=== PATIENT | male | born 1970 | race Caucasian/White ===

== ENCOUNTER → 2024-02-17 10:32 | Outpatient (REF) | payer OTHER, SELFPAY | LOC: RCS 10:32 | PROVIDERS: ATTENDING PHYSICIAN Internal Medicine Cardiovascular Disease; FAMILY PHYSICIAN Family Medicine | DX: E78.2 Mixed hyperlipidemia (principal); I25.10 Atherosclerotic heart disease of native coronary artery without angina pectoris | CPT/HCPCS: 93017 ==

== ENCOUNTER 2024-04-08 17:11 | Inpatient (IN) | payer OTHER, SELFPAY ==
[2024-04-08] VITALS (8 sets, daily range): BP systolic 94–151; BP diastolic 47–88; BMI 31.0
[2024-04-08] MEDS: ZOFRAN 4 MG IV (13:37)
[2024-04-08] MEDS: MORPHINE SULFATE 4 MG IV (13:37)
[2024-04-08 13:40] LABS: % Basophils 0.3 % (0-2); % Eosinophils 1.5 % (0-6); % Immature Granulocytes 0.4 % (0-0.5); % Lymphocytes 24.5 % (20.5-51.1); % Monocytes 9.5 % (1.7-9.3); % Neutrophils 63.8 % (42.2-75.2); Absolute Eosinophils 0.2 10^3/uL (0-0.7); Absolute Immature Granulocytes 0.1 10^3/uL (0-0.05); Absolute Monocytes 1.2 10^3/uL (0.1-0.6); Absolute Neutrophils 7.9 10^3/uL (1.4-6.5); Hematocrit 38.7 % (39.0-52.0); Hemoglobin 13.5 g/dL (13.0-18.0); Mean Corp Hgb Conc. 34.9 g/dL (33.0-37.0); Mean Corpuscular Hgb 29.9 pg (27.0-31.0); Mean Corpuscular Volume 85.6 fL (80.0-94.0); Mean Platelet Volume 10.2 fL (7.4-10.4); Nucleated Red Blood Cells % 0 % (-); Platelet Count 204 10^3/uL (130-400); Red Blood Cell Count 4.52 10^6/uL (4.70-6.10); White Blood Cell Count 12.4 10^3/uL (4.8-10.8)
[2024-04-08 13:56] LABS: Lactic Acid 0.7 mmol/L (0.7-2.0)
[2024-04-08 13:57] LABS: ALT (SGPT) 45 U/L (0-50); AST (SGOT) 24 U/L (17-59); Albumin 4.2 g/dl (3.5-5.0); Alkaline Phosphatase 55 U/L (38-126); Blood Urea Nitrogen 18 mg/dl (9-20); Calcium 9.5 mg/dl (8.4-10.2); Carbon Dioxide 22 mmol/L (22-30); Chloride 104 mmol/L (98-107); Estimated Creatinine Clearance 95 ml/min; Glucose 99 mg/dl (70-99); Potassium 4.2 mmol/L (3.5-5.1); Sodium 138 mmol/L (135-145); Total Bilirubin 1.2 mg/dl (0.2-1.3); Total Protein 6.8 g/dl (6.3-8.2); eGFR > 60.00
--- NOTE | 2024-04-08 14:25 | ED.GENMED ---
History of Present Illness
General
Chief Complaint: Abdominal Pain
Source: patient and spouse
Exam Limitations: none
Time Seen by Provider: 04/08/24 13:26
History of Present Illness
History of Present Illness:
53-year-old male who presents with lower abdominal pain that began about 530 last night. He states his pain has persisted through today. It is not improved. He does admit that the pain was worse when they hit bumps on his drive over here. He
denies vomiting or nausea. No fevers. No stool changes. No urinary symptoms. Did have a little bit of chills last night. Does state that he has had diverticular disease noted on the colonoscopy in the past. Has never had diverticulitis
Past History
Past History
ED Past Medical History: Hypercholesterolemia and Other (Diverticulosis, high calcium score)
Phy Exam
Physical Exam
Physical Exam:
CONSTITUTIONAL Patient alert and oriented to person, place and time. Well-appearing. Vital signs reviewed.
HEAD atraumatic, normocephalic.
EYES eyelids normal to inspection, Extraocular muscles intact, Conjunctiva normal, Sclera normal.
NECK normal range of motion, Trachea midline, no jugular venous distention.
RESPIRATORY CHEST No respiratory distress noted, Chest expansion equal, Bilateral breath sounds clear.
CARDIOVASCULAR regular rate and rhythm, Heart sounds normal.
ABDOMEN mild distention noted, rebound noted, moderate diffuse tenderness noted..
BACK normal inspection, no obvious deformities
UPPER EXTREMITY range of motion normal, Motor strength normal, no cyanosis, no edema.
LOWER EXTREMITY range of motion normal, Motor strength normal, no cyanosis, no edema.
NEURO Speech normal, No focal motor deficits, Fredrick coma scale 15, Memory normal, Cranial Nerves intact to screening exam.
SKIN skin warm, dry, and normal in color.
Sepsis
Sepsis Screening
Sepsis Assessment: Sepsis Ruled Out
Sepsis Screen
Sepsis Screen: Sepsis Ruled Out
Date: 04/08/24
Time: 15:52
Course
Orders/Labs/Results
Orders:
Orders
04/08/24 13:31
Complete Blood Count/With Diff Urgent
Comprehensive Metabolic Panel Urgent
Lactic Acid Urgent
04/08/24 13:34
Morphine Sulfate 4 mg .ROUTE .STK-MED ONE
Ondansetron Injectable [Zofran] 4 mg .ROUTE .STK-MED ONE
04/08/24 13:36
CT Abd/Pel (IV only)-DH only Urgent
Comment: DOES NOT NEED TO WAIT FOR LABS
Reason For Exam: SEVERE lower abd pain
Morphine Sulfate 4 mg IV NOW STA
Ondansetron Injectable [Zofran] 4 mg IV NOW STA
04/08/24 14:57
Urinalysis Reflex To Culture Urgent
Date Specimen was Collected: 04/08/24
Time Specimen was Collected: 13:22
Piperacillin/Tazo 3.375 Gram [Zosyn] 3.375 gram in 50 ml IV NOW
Abnormal Lab Results
04/08/24
13:31
WBC 12.4 H 10^3/uL
(4.8-10.8)
RBC 4.52 L 10^6/uL
(4.70-6.10)
Hct 38.7 L %
(39.0-52.0)
Abs Immat Gran (auto) 0.1 H 10^3/uL
(0-0.05)
Absolute Neuts (auto) 7.9 H 10^3/uL
(1.4-6.5)
Absolute Monos (auto) 1.2 H 10^3/uL
(0.1-0.6)
Monocytes % 9.5 H %
(1.7-9.3)
04/08/24 13:31
04/08/24 13:31
Vital Signs
Initial and Last Documented VS:
Initial Vital Signs
Temp Pulse Resp BP Pulse Ox
100 F 94 18 120/82 96
04/08/24 13:16 04/08/24 13:16 04/08/24 13:16 04/08/24 13:16 04/08/24 13:16
Last Documented Vital Signs
Temp Pulse Resp BP Pulse Ox
100 F 77 18 151/88 96
04/08/24 13:16 04/08/24 15:15 04/08/24 15:15 04/08/24 15:04 04/08/24 15:15
MDM/Problems Addressed
Differential Diagnosis Includes:
Perforated diverticulitis, appendicitis, perforated peptic ulcer disease, duodenal ulcer disease, pancreatitis, colitis, UTI
*Pulse Oximetry
Patient hypoxic: no
*Critical Care Note
Total Time (30-74mins, 75-104mins- exclusive of procedures): 30 minutes
Data Reviewed
Source: patient and spouse
Patient Management
Discussion with other providers: [employer] (Case discussed with colorectal surgery) and Radiologist (Case discussed with radiology)
Escalation/DeEscalation of care consider admission/obs:
53-year-old male who presents with peritoneal findings on exam. Found to have perforated viscus that I saw immediately upon completion of his CT. Case discussed with colorectal surgery who is now in the room evaluating the patient. Zosyn ordered.
Pain much improved
ED Attending Note
-
Portions of this chart may have been created with voice recognition software.� Occasional wrong word or��sound alike� substitutions may have occurred due to the inherent limitations of voice recognition software.
Discharge Plan
Departure
Patient Disposition: Admit
Date of Disposition: 04/08/24
Time of Disposition: 15:15
Admit to: Med/Surg
Presentation/result/management discussed w/ accepting MD/DO: Hospitalist
Discharge Problem:
Perforated abdominal viscus, Acute diverticulitis
Prescriptions:
No Action
atorvastatin 80 mg tablet
80 mg PO DAILY
aspirin 81 mg Tablet,Delayed Release (Dr/Ec)
81 mg PO DAILY
Referrals:
Torey Gunter DO [Family Provider] -
Interventions
Interventions:
*Risk Screen - Suicide Last Done: 04/08/24 13:16
*General Assessment Last Done: 04/08/24 13:16
*Neglect/Abuse Screening Last Done: 04/08/24 13:16
*ED COVID-19 Vaccine History Last Done: 04/08/24 13:36
YF-Vftvqv-Beajrtbngv Assessment Last Done: 04/08/24 13:35
Discharge Date and Time
Print Language: [place]
[2024-04-08] MEDS: ZOSYN 50 IV ×2 (15:03→22:38)
[2024-04-08 15:14] LABS: Urine Albumin Negative (Neg - Trace); Urine Bilirubin Negative (Negative); Urine Character Clear (Clear); Urine Color Yellow; Urine Glucose Negative (Negative); Urine Ketone Negative (Negative); Urine Leukocyte Negative (Negative); Urine Nitrite Negative (Negative); Urine Occult Blood Negative (Negative); Urine Specific Gravity 1.015 (<1.030); Urine Urobilinogen Negative (Neg - 1+)
--- NOTE | 2024-04-08 16:01 | CON.CRS ---
Consultation
-
Performing Provider: Jonathan Garsia MD
Reason for Consultation: Diverticulitis with perforation
Medical History
-
History of Present Illness:
Patient is a 53-year-old male with PMH of HLD, RAINA (on BiPAP at home), GERD who presents with abdominal pain starting yesterday at around 5 PM. He first noticed it while he was doing his usual daily 5 mile walk on the treadmill. It slowly
progressively got worse during the day. He was able to have dinner, but by this morning, the pain was a 7-8 out of 10. He denies any issues with nausea, vomiting, diarrhea, hematochezia, chest pain or shortness of breath. He has been passing
flatus. His last colonoscopy was 05/[address] Inman, which showed a sigmoid TA, diverticulosis, hemorrhoids and was recommended to repeat in 5 years. His mother had an unknown adenocarcinoma, believed to be lung or breast. His grandfather had
colon cancer.
In the ED, his Tmax was 100.0, vitals WNL, WBC 12.[address] scan showing diverticulitis with evidence of scattered flecks of free air, primarily in the upper abdomen and adjacent to the sigmoid colon. No free fluid or abscess.
Past Medical History
Past Medical History: Other (As above)
Past Surgical History: Other (Excision of left thigh hemangioma)
Social History
Tobacco: Non-Smoker
Alcohol: Occasional
Drug: None
Allergies / Home Medications
Allergy/AdvReac Type Severity Reaction Status Date / Time
No Known Allergies Allergy Verified 04/08/24 13:16
�Medication �Instructions �Recorded �Confirmed �Type
aspirin 81 mg tablet,delayed 81 mg PO DAILY 04/08/24 04/08/24 History
release
atorvastatin 80 mg tablet 80 mg PO DAILY 04/08/24 04/08/24 History
Review of Systems
-
All other systems: Negative unless noted
A 10 point review of systems was completed, and was negative except as per HPI.
Physical Exam
Vital Signs
Temp 100 F 04/08/24 13:16
Pulse 77 04/08/24 15:15
Resp Rate 18 04/08/24 15:15
Blood pressure 151/88 04/08/24 15:04
SaO2 96 04/08/24 15:15
04/07/24 04/08/24 04/09/24
06:59 06:59 06:59
Actual Weight 100.7 kg
Body Mass Index (BMI) 31.0
Lab Results / Allergies
04/08/24 13:31
04/08/24 13:31
WBC 12.4 10^3/uL (4.8-10.8) H 04/08/24 13:31
Hgb 13.5 g/dL (13.0-18.0) 04/08/24 13:31
Hct 38.7 % (39.0-52.0) L 04/08/24 13:31
Plt Count 204 10^3/uL (130-400) 04/08/24 13:31
Abs Immat Gran (auto) 0.1 10^3/uL (0-0.05) H 04/08/24 13:31
Neutrophils % 63.8 % (42.2-75.2) 04/08/24 13:31
Allergy/AdvReac Type Severity Reaction Status Date / Time
No Known Allergies Allergy Verified 04/08/24 13:16
Physical Exam
General: Well Developed, Well Nourished and No Apparent Distress
HEENT: Normocephalic and Atraumatic
GI: Soft, Non Distended and Tender (Mildly to moderately tender in the LLQ, diffusely mildly tender with subtle rebound towards the upper quadrants, no guarding)
Skin: Warm and Dry
Neuro: AO x 3
Data Reviewed
-
CT Scan: Image Personally Visualized and interpreted, Discussed with Physician (Radiology and EM), Discussed with Patient and Discussed with Family
Labs: Labs Reviewed by me, Discussed with Patient and Discussed with Family
Assessment / Plan
-
53-year-old male with PMH of HLD, RAINA (on BiPAP at home), GERD who presents with abdominal pain starting yesterday at around 5 PM. He first noticed it while he was doing his usual daily 5 mile walk on the treadmill. It slowly progressively got
worse during the day. He was able to have dinner, but by this morning, the pain was a 7-8 out of 10. He denies any issues with nausea, vomiting, diarrhea, hematochezia, chest pain or shortness of breath. He has been passing flatus. His last
colonoscopy was 05/[address] Inman, which showed a sigmoid TA, diverticulosis, hemorrhoids and was recommended to repeat in 5 years. His mother had an unknown adenocarcinoma, believed to be lung or breast. His grandfather had colon cancer. In
the ED, his Tmax was 100.0, vitals WNL, WBC 12.[address] scan showing diverticulitis with evidence of scattered flecks of free air, primarily in the upper abdomen and adjacent to the sigmoid colon. No free fluid or abscess.
�Acute diverticulitis with free perforation
�Currently hemodynamically stable and without evidence of overt peritonitis; had a lengthy discussion with the patient and patient's spouse regarding the treatment options, including urgent surgery versus close monitoring for any evidence of
clinical decline; urgent surgery has a much higher likelihood of requiring an ostomy, but results in prompt source control to avoid the complications of abdominal sepsis; with free perforation, the success rate with nonoperative management is
somewhere along the lines of 50 to 60%; therefore, nonoperative measures may be successful and avoid urgent surgery, decreasing the risk of needing an ostomy; however, the risk of nonoperative measures includes worsening clinical status, abdominal
sepsis and shock; all questions were answered and the patient understood; he elected to proceed with nonoperative measures for now with the understanding that clinical decline would require urgent surgery
�N.p.o. with IV fluids, okay for p.o. meds
�Continue IV antibiotics with Zosyn
� Continue pain control with Toradol and Dilaudid as needed
� Okay for OOB/IS
� Will send preoperative workup, including EKG/chest x-ray, type and screen and coags for the morning
� Will order BiPAP nightly
[2024-04-08] MEDS: D5LR 1000 IV (18:29)
[2024-04-08] MEDS: DILAUDID 0.5 MG IV (22:38)
[2024-04-09] MEDS: D5LR 1000 IV ×3 (03:11→20:00)
[2024-04-09] MEDS: ZOSYN 50 IV ×4 (03:21→21:03)
[2024-04-09] MEDS: DILAUDID 0.5 MG IV (03:22)
[2024-04-09 03:28] VITALS: BP 122/71
[2024-04-09 05:47] LABS: Hematocrit 36.7 % (39.0-52.0); Hemoglobin 11.9 g/dL (13.0-18.0); Mean Corp Hgb Conc. 32.4 g/dL (33.0-37.0); Mean Corpuscular Hgb 29.8 pg (27.0-31.0); Mean Corpuscular Volume 91.8 fL (80.0-94.0); Mean Platelet Volume 10.5 fL (7.4-10.4); Platelet Count 168 10^3/uL (130-400); Red Cell Dist. Width 13.1 % (11.5-14.5); White Blood Cell Count 9.2 10^3/uL (4.8-10.8)
[2024-04-09 06:25] LABS: ALT (SGPT) 35 U/L (0-50); AST (SGOT) 19 U/L (17-59); Albumin 3.5 g/dl (3.5-5.0); Alkaline Phosphatase 48 U/L (38-126); Blood Urea Nitrogen 16 mg/dl (9-20); Calcium 8.7 mg/dl (8.4-10.2); Carbon Dioxide 30 mmol/L (22-30); Chloride 101 mmol/L (98-107); Estimated Creatinine Clearance 66 ml/min; Glucose 116 mg/dl (70-99); Potassium 4.6 mmol/L (3.5-5.1); Sodium 138 mmol/L (135-145); Total Bilirubin 1.2 mg/dl (0.2-1.3); Total Protein 5.9 g/dl (6.3-8.2); eGFR > 60.00
[2024-04-09 07:10] VITALS: BP 108/70
[2024-04-09] MEDS: TORADOL 15 MG IV (07:20)
[2024-04-09 11:18] LABS: Osmolality Urine 422 mOsm/kg (300-900)
[2024-04-09 11:20] VITALS: BP 123/95
[2024-04-09 11:38] LABS: Urine Sodium 30 mmol/L (30-90)
--- NOTE | 2024-04-09 13:55 | W.PN.CRS1 ---
Today's Communication / Plan
-
As below
Assessment/Plan
-
53-year-old male with PMH of HLD, RAINA (on BiPAP at home), GERD who presents with abdominal pain starting yesterday at around 5 PM. He first noticed it while he was doing his usual daily 5 mile walk on the treadmill. It slowly progressively got
worse during the day. He was able to have dinner, but by this morning, the pain was a 7-8 out of 10. He denies any issues with nausea, vomiting, diarrhea, hematochezia, chest pain or shortness of breath. He has been passing flatus. His last
colonoscopy was 05/[address] Inman, which showed a sigmoid TA, diverticulosis, hemorrhoids and was recommended to repeat in 5 years. His mother had an unknown adenocarcinoma, believed to be lung or breast. His grandfather had colon cancer. In
the ED, his Tmax was 100.0, vitals WNL, WBC 12.[address] scan showing diverticulitis with evidence of scattered flecks of free air, primarily in the upper abdomen and adjacent to the sigmoid colon. No free fluid or abscess.
AFVSS
WBC 9.2 from 12.4, Hb 11.9 from 13.5, creatinine 1.4 from 1.1
�Acute diverticulitis with free perforation; hemodynamically stable without overt peritonitis; improving
�Continue nonoperative measures with close monitoring
�JEFF, mild; continue IVF
�Renal ultrasound�no hydronephrosis; Fena 0.2, consistent with prerenal origin
�N.p.o. with IV fluids, okay for p.o. meds
�Continue IV antibiotics with Zosyn
� Continue pain control with Toradol and Dilaudid as needed
� Okay for OOB/IS
� Will send preoperative workup, including EKG/chest x-ray, type and screen and coags for the morning
� Will order BiPAP nightly
Subjective Data
Subjective Data
Date of Service: April 09, 2024
No overnight events.
Pain controlled.
Denies nausea/vomiting.
+flatus -BMs +voiding
Pt is OOB.
Objective Data
-
Vital Signs
Temp Pulse Resp BP Pulse Ox
97.9 F 70 18 123/95 99
04/09/24 11:20 04/09/24 11:20 04/09/24 11:20 04/09/24 11:20 04/09/24 11:20
Intake & Output
04/08/24 04/09/24 04/10/24
06:59 06:59 06:59
Intake Total 1600 / 1600
Balance 1600 / 1600
Intake:
IV fluids (Total) 1500 / 1500
IV piggybacks 100 / 100
Lab Results
04/09/24 04:30
04/09/24 04:30
Physical Exam
-
General: No Acute Distress and AOx3
HEENT: Grossly Normal
Abdomen: Soft, Non Distended, Tender (Mildly tender diffusely, improved from yesterday), No Guarding and No Rebound
Skin: Warm and Dry
[2024-04-09 15:40] VITALS: BP 136/82
[2024-04-09 19:13] VITALS: BP 136/81
[2024-04-09 22:59] VITALS: BP 118/70
[2024-04-10 03:16] VITALS: BP 119/69
[2024-04-10] MEDS: ZOSYN 50 IV ×4 (04:00→22:41)
[2024-04-10] MEDS: D5LR 1000 IV ×3 (04:00→22:44)
[2024-04-10 05:47] LABS: Hematocrit 37.5 % (39.0-52.0); Hemoglobin 12.2 g/dL (13.0-18.0); Mean Corp Hgb Conc. 32.5 g/dL (33.0-37.0); Mean Corpuscular Hgb 29.5 pg (27.0-31.0); Mean Corpuscular Volume 90.6 fL (80.0-94.0); Mean Platelet Volume 10.7 fL (7.4-10.4); Platelet Count 175 10^3/uL (130-400); Red Blood Cell Count 4.14 10^6/uL (4.70-6.10); White Blood Cell Count 9.4 10^3/uL (4.8-10.8)
[2024-04-10 06:01] LABS: APTT 32.9 Sec (23.4-35.0); INR 1.07; PT 14.2 Sec (11.4-14.6)
[2024-04-10 06:05] LABS: Blood Urea Nitrogen 12 mg/dl (9-20); Calcium 8.8 mg/dl (8.4-10.2); Carbon Dioxide 30 mmol/L (22-30); Chloride 102 mmol/L (98-107); Estimated Creatinine Clearance 71 ml/min; Glucose 110 mg/dl (70-99); Potassium 4.1 mmol/L (3.5-5.1); Sodium 141 mmol/L (135-145); eGFR > 60.00
[2024-04-10 07:33] VITALS: BP 128/79
[2024-04-10 11:17] VITALS: BP 128/73
--- NOTE | 2024-04-10 11:30 | W.PN.CRS1 ---
Today's Communication / Plan
-
clears
ivfs @ 100ml
restart po meds
Assessment/Plan
-
53-year-old male with PMH of HLD, RAINA (on BiPAP at home), GERD who presents with abdominal pain starting yesterday at around 5 PM. He first noticed it while he was doing his usual daily 5 mile walk on the treadmill. It slowly progressively got
worse during the day. He was able to have dinner, but by this morning, the pain was a 7-8 out of 10. He denies any issues with nausea, vomiting, diarrhea, hematochezia, chest pain or shortness of breath. He has been passing flatus. His last
colonoscopy was 05/[address] Inman, which showed a sigmoid TA, diverticulosis, hemorrhoids and was recommended to repeat in 5 years. His mother had an unknown adenocarcinoma, believed to be lung or breast. His grandfather had colon cancer. In
the ED, his Tmax was 100.0, vitals WNL, WBC 12.[address] scan showing diverticulitis with evidence of scattered flecks of free air, primarily in the upper abdomen and adjacent to the sigmoid colon. No free fluid or abscess.
AFVSS
WBC 9.4 from 9.2, Hb 12.2 from 11.9, creatinine 1.3 from 1.4
�Acute diverticulitis with free perforation; hemodynamically stable without overt peritonitis; improving
�Continue nonoperative measures with close monitoring
�JEFF, mild; continue IVF
�Renal ultrasound�no hydronephrosis; Fena 0.2, consistent with prerenal origin
-Continue IVFs @ 100ml/hr
�Advance diet to clears
�Continue IV antibiotics with Zosyn
� Continue pain control with Toradol and Dilaudid as needed
� Okay for OOB/IS
� BiPAP nightly
- DVT prophylaxis: TEDs/SCDS, heparin subq
- Will restart po meds
Subjective Data
Subjective Data
Date of Service: April 10, 2024
Patient states his abdominal pain is 3/10. He is having bowel movements. He denies nausea or vomiting. Overall he is improving.
Objective Data
-
Vital Signs
Temp Pulse Resp BP Pulse Ox
98.0 F 66 17 128/73 98
04/10/24 11:17 04/10/24 11:17 04/10/24 11:17 04/10/24 11:17 04/10/24 11:17
Intake & Output
04/09/24 04/10/24 04/11/24
06:59 06:59 06:59
Intake Total 1600 / 1600 0 / 1840
Balance 1600 / 1600 0 / 1840
Intake:
Oral fluids 240 / 240
IV fluids (Total) 1500 / 1500 1500 / 1500
IV piggybacks 100 / 100 100 / 100
Other:
Number of approximated MODERATE 2
amounts of urine
Number of approximated LARGE 1
amounts of urine
Lab Results
04/10/24 04:59
04/10/24 04:59
Physical Exam
-
General: No Acute Distress and AOx3
Abdomen: Soft, Non Distended and Tender (mild LLQ )
Skin: Warm and Dry
[2024-04-10] MEDS: LIPITOR 80 MG PO (12:19)
[2024-04-10] MEDS: ASPIR LOW (ENTERIC COATED) 81 MG PO (12:19)
--- NOTE | 2024-04-10 12:19 | CM ---
Adm dx - Complicated diverticulitis
Met with pt and his at bedside
Pt reports he lives with his and 3 children in a 2 story home; 3 steps to enter, 12 steps to 2nd fl
Independent, employed FT, drives
DME - BiPap - [employer]
SNF/HH - denies past hx
Has ride at discharge
PCP - Torey Gunter
Pharm - [facility] - [address]
Plan - anticipate home no needs when medically stable
[2024-04-10 15:27] VITALS: BP 118/67
[2024-04-10 19:38] VITALS: BP 144/84
[2024-04-10 23:28] VITALS: BP 131/90
[2024-04-11] MEDS: ZOSYN 50 IV ×2 (03:19→10:31)
[2024-04-11] MEDS: D5LR 1000 IV (04:48)
[2024-04-11 06:09] LABS: % Basophils 0.5 % (0-2); % Eosinophils 4.6 % (0-6); % Immature Granulocytes 0.3 % (0-0.5); % Lymphocytes 34.3 % (20.5-51.1); % Monocytes 11.3 % (1.7-9.3); Absolute Eosinophils 0.4 10^3/uL (0-0.7); Absolute Lymphocytes 2.6 10^3/uL (1.2-3.4); Absolute Monocytes 0.9 10^3/uL (0.1-0.6); Absolute Neutrophils 3.8 10^3/uL (1.4-6.5); Hemoglobin 11.4 g/dL (13.0-18.0); Mean Corp Hgb Conc. 32.6 g/dL (33.0-37.0); Mean Corpuscular Hgb 29.1 pg (27.0-31.0); Mean Corpuscular Volume 89.3 fL (80.0-94.0); Mean Platelet Volume 10.7 fL (7.4-10.4); Nucleated Red Blood Cells % 0 % (-); Platelet Count 192 10^3/uL (130-400); Red Blood Cell Count 3.92 10^6/uL (4.70-6.10); Red Cell Dist. Width 13.1 % (11.5-14.5); White Blood Cell Count 7.7 10^3/uL (4.8-10.8)
[2024-04-11 07:12] VITALS: BP 116/79
[2024-04-11] MEDS: LIPITOR 80 MG PO (08:24)
[2024-04-11] MEDS: ASPIR LOW (ENTERIC COATED) 81 MG PO (08:24)
--- NOTE | 2024-04-11 09:58 | W.PN.CRS1 ---
Today's Communication / Plan
-
low residue diet
possible d/c later today
Assessment/Plan
-
53-year-old male with PMH of HLD, RAINA (on BiPAP at home), GERD who presents with abdominal pain starting yesterday at around 5 PM. He first noticed it while he was doing his usual daily 5 mile walk on the treadmill. It slowly progressively got
worse during the day. He was able to have dinner, but by this morning, the pain was a 7-8 out of 10. He denies any issues with nausea, vomiting, diarrhea, hematochezia, chest pain or shortness of breath. He has been passing flatus. His last
colonoscopy was 05/[address] Inman, which showed a sigmoid TA, diverticulosis, hemorrhoids and was recommended to repeat in 5 years. His mother had an unknown adenocarcinoma, believed to be lung or breast. His grandfather had colon cancer. In
the ED, his Tmax was 100.0, vitals WNL, WBC 12.[address] scan showing diverticulitis with evidence of scattered flecks of free air, primarily in the upper abdomen and adjacent to the sigmoid colon. No free fluid or abscess.
AFVSS
WBC 7.7 from 9.4, Hb 11.4 from 12.2, creatinine 1.3 from 1.4
� Advance diet to low residue
� Continue IV antibiotics with Zosyn
� Continue pain control with Toradol and Dilaudid as needed
� Okay for OOB/IS
� BiPAP nightly
- DVT prophylaxis: TEDs/SCDS, heparin subq
- Okay for discharge later today if tolerating a low residue diet. Follow up in the office with Dr. Garsia in 3-4 weeks. Finish outpatient course of po Augmentin.
Subjective Data
Subjective Data
Date of Service: April 11, 2024
Patient states he feels well. He has no nausea or vomiting. His abdominal pain is virtually gone. He has no complaints.
Objective Data
-
Vital Signs
Temp Pulse Resp BP Pulse Ox
97.9 F 63 16 116/79 96
04/11/24 07:12 04/11/24 07:12 04/11/24 07:12 04/11/24 07:12 04/11/24 07:12
Intake & Output
04/10/24 04/11/24 04/12/24
06:59 06:59 06:59
Intake Total 1840 / 1840 3040 / 3040
Balance 1840 / 1840 3040 / 3040
Intake:
Oral fluids 240 / 240 1440 / 1440
IV fluids (Total) 1500 / 1500 1500 / 1500
IV piggybacks 100 / 100 100 / 100
Other:
Number of approximated MODERATE 2 2
amounts of urine
Number of approximated LARGE 1 2
amounts of urine
Lab Results
04/11/24 04:34
04/10/24 04:59
Physical Exam
-
General: No Acute Distress and AOx3
Abdomen: Soft, Non Distended and Non Tender
Skin: Warm and Dry
--- NOTE | 2024-04-11 10:24 | W.DS.TRANS ---
DC Summary - Day Care Worker
-
Discharge Instructions:
Discharge Diagnosis/Procedures diverticulitis
Diet Low Residue
Activity As tolerated
Driving Restrictions As prior to admission
Bathing Restrictions None
Instructions: Low Fiber Diet
Stand-Alone Forms:
Changes to Home Medications: Yes
Discharge Medications:
DC Medications w/original date entered in [employer]
aspirin 81 mg tablet,delayed release 81 mg PO DAILY Blood Clot Prevention/Tx 04/08/24
atorvastatin 80 mg tablet 80 mg PO DAILY High Cholesterol 04/08/24
amoxicillin 875 mg-potassium clavulanate 125 mg tablet 1 tab PO BID 8 days #16 tabs 04/11/24
Home Medication Changes
amoxicillin 875 mg-potassium clavulanate 125 mg tablet 1 tab PO BID 8 days #16 tabs 04/11/24
Pending Results: No
[2024-04-11 11:18] VITALS: BP 135/76
--- NOTE | 2024-04-11 12:03 | CM ---
Pt for discharge today
Has ride home -
Plan - home no needs
== END 2024-04-11 13:19 | disposition home or self-care (01) | DRG 392 ==
LOC: 2 SOUTH 17:11
PROVIDERS: Physician Assistant; Registered Nurse; ADMITTING PHYSICIAN Surgery; EMERGENCY PHYSICIAN Emergency Medicine; FAMILY PHYSICIAN Family Medicine
DX: K57.20 Diverticulitis of large intestine with perforation and abscess without bleeding (principal); N17.9 Acute kidney failure, unspecified; K21.9 Gastro-esophageal reflux disease without esophagitis; Z80.0 Family history of malignant neoplasm of digestive organs; Z79.82 Long term (current) use of aspirin
CPT/HCPCS: 71045; 74177; 76775; 80048; 80053; 81003; 82570; 83605; 83935; 84300; 85025; 85027; 85610; 85730; 86850; 86900; 86901; 93005; 96365; 96375; 99291; Q9967

== ENCOUNTER 2024-06-02 06:13 | Inpatient (IN) | payer OTHER, SELFPAY ==
[2024-05-25 09:06] LABS: INR 0.94; PT 13.1 Sec (11.4-14.6)
[2024-05-25 09:07] LABS: APTT 29.2 Sec (23.4-35.0)
[2024-05-25 09:44] LABS: Hematocrit 38.7 % (39.0-52.0); Hemoglobin 12.9 g/dL (13.0-18.0); Mean Corp Hgb Conc. 33.3 g/dL (33.0-37.0); Mean Corpuscular Hgb 29.4 pg (27.0-31.0); Mean Corpuscular Volume 88.2 fL (80.0-94.0); Platelet Count 192 10^3/uL (130-400); Red Blood Cell Count 4.39 10^6/uL (4.70-6.10); Red Cell Dist. Width 13.3 % (11.5-14.5); White Blood Cell Count 6.8 10^3/uL (4.8-10.8)
[2024-05-25 10:06] LABS: ALT (SGPT) 76 U/L (0-50); AST (SGOT) 40 U/L (17-59); Albumin 4.4 g/dl (3.5-5.0); Alkaline Phosphatase 67 U/L (38-126); Blood Urea Nitrogen 19 mg/dl (9-20); Calcium 9.2 mg/dl (8.4-10.2); Carbon Dioxide 29 mmol/L (22-30); Chloride 103 mmol/L (98-107); Glucose 100 mg/dl (70-99); Potassium 4.2 mmol/L (3.5-5.1); Sodium 139 mmol/L (135-145); Total Bilirubin 0.5 mg/dl (0.2-1.3); eGFR > 60.00
[2024-05-25 12:23] VITALS: BMI 30.5
--- NOTE | 2024-05-29 13:23 | PTCARENOTE ---
Abnormal EKG reviewed by Dr. Doyle, no further action requested.
[2024-06-02] VITALS (19 sets, daily range): BP systolic 122–158; BP diastolic 66–102; BMI 30.5
[2024-06-02] MEDS: TYLENOL 1000 MG PO ×2 (06:58→18:11)
[2024-06-02] MEDS: LYRICA 150 MG PO (06:58)
[2024-06-02] MEDS: CELEBREX 200 MG PO (06:58)
[2024-06-02] MEDS: HEPARIN 5000 UNITS SC (06:59)
[2024-06-02] MEDS: NORMOSOL-R/PLASMALYTE-A 1000 IV ×2 (06:59→16:20)
[2024-06-02] MEDS: ENTEREG 12 MG PO (06:59)
--- NOTE | 2024-06-02 13:17 | W.IMMPOSTOP ---
Surgical Immed Post Op Note
-
Primary Surgeon: Jonathan Garsia MD
Assisting Surgeon: RAMONA Mckeon
Pre-op Diagnosis: Complicated diverticulitis
Post-op Diagnosis: Complicated diverticulitis
Procedure Performed: Robotic sigmoidectomy, lysis of adhesions, mesenteric angiography with ICG, flexible sigmoidoscopy, laparoscopic tap block
Anesthesia Type: General
Specimen / Cultures: Rectosigmoid, IMV
Estimated Blood Loss: 25 mL
IV fluid: 1.7 L
UOP 300 mL
Complications: None
Operative Findings: Veress technique, 5 ports and Pfannenstiel incision; pendulous preperitoneal fat in front of the camera port, which I resected with vessel sealer; took down some adhesions between the sigmoid and the left lower quadrant; started
with medial to lateral dissection; initially, a little too deep; switched to lateral to medial and identified the left ureter; switched back to medial to lateral and scored peritoneum more medially and entered the correct plane; protected the
hypogastric nerves; ligated the main sigmoidal and left colic artery with vessel sealer; medial to lateral mobilization of the mesocolon and descending colon; took down lateral attachments of to the proximal descending colon; mobilized the
rectosigmoid starting posteriorly; performed flexible sigmoidoscopy and aspirated significant amount of liquid stool; rectum healthy up to the rectosigmoid junction; scored my distal transection point, just distal to the rectosigmoid junction;
divided the mesorectum with the vessel sealer and stapled and divided the proximal rectum with 2 green loads of the 60 mm robotic stapler; selected a point at the distal descending colon, just proximal to the thickened sigmoid wall; divided the
mesentery up to this point, ligating the IMV; performed ICG and confirmed good perfusion to my proximal transection point and the rectal stump, except for a corner of the staple line which appeared less well-perfused; therefore, I stapled and
divided this area back to well-perfused rectum using 2 green loads of the 60 mm robotic stapler; placed anvil and divided the distal descending colon with 1 blue load of the robotic 60 mm stapler; I checked my reach, which appeared an adequate; I
mobilized the mesentery medially up to the inferior edge of the pancreas and divided the IMV at this point; as the IMV was divided at 2 locations within the mesentery, I resected it so that it would not serve as a nidus for infection; I took down
the lateral attachments up to the splenic flexure without taking this down completely; my reach was more than adequate at this point; performed an intracorporeal EEA stapled anastomosis; donuts intact x 2, negative leak test, anastomosis intact on
flexible sigmoidoscopy; performed ICG once more and both sides of the anastomosis were well-perfused; performed laparoscopic tap block and closed in the usual fashion
--- NOTE | 2024-06-02 13:28 | OR.RPT ---
Operative Report
Operative Report
DATE OF OPERATION: 06/02/2024
SURGEON: Jonathan Garsia MD
PREOPERATIVE DIAGNOSIS: History of perforated diverticulitis
POSTOPERATIVE DIAGNOSIS: History of perforated diverticulitis
OPERATION: Robotic sigmoidectomy, adhesiolysis greater than 30 minutes, mesenteric angiography with ICG, flexible sigmoidoscopy, laparoscopic TAP block
ASSISTANTS:
1. RAMONA Mckeon
ANESTHESIA: General
ESTIMATED BLOOD LOSS: 25 mL
IVF: 1.7 L
URINE OUTPUT: 300 mL
FINDINGS:
1. Thickening of mid�sigmoid colon with adhesions to the left lower quadrant
2. Divided the IMV at 2 separate points within the mesentery in order to improve reach; therefore, resected the blind-ending IMV
3. Performed intracorporeal EEA stapled colorectal anastomosis from the distal descending colon to the proximal rectum; donuts intact x 2, negative leak test, anastomosis intact on flexible sigmoidoscopy
SPECIMENS:
1. Rectosigmoid colon
2. IMV
DRAINS: None
COMPLICATIONS: No immediate complications.
INDICATIONS: The patient is a 53-year-old male who initially presented to the [facility] ED with acute abdominal pain and was found to have free perforation due to sigmoid diverticulitis. Although there was free air, it was a small amount and the
patient did not have any hemodynamic instability or peritonitis. He was treated nonoperatively successfully and discharged 3 days later. As this was a complicated episode of diverticulitis, I recommended definitive sigmoidectomy to reduce the risk
of recurrence and need for emergent surgery. The operation was discussed with the patient and patient's in detail, including the risks, benefits and alternatives. Risks described included, but not limited to, bleeding, infection, anastomotic
leak, damage to nearby structures (i.e.- ureter, bowel, solid organs), incisional hernia, need for ostomy creation, conversion to open, recurrent diverticulitis and anesthetic risks. The patient and patient's spouse understood and agreed to proceed.
PROCEDURE IN DETAIL: The patient was taken to the operating room and placed on the operating table in supine position. Sequential compression devices were placed bilaterally. General anesthesia was induced and the patient was intubated without
complication. The patient was placed in lithotomy position with both arms tucked. Sheppard catheter was placed with sterile technique. The abdomen was shaved, prepped and draped in a sterile fashion. A time-out was performed verifying the correct
patient, procedure, operative site, positioning, and special equipment. Preoperative antibiotics were given. A marking pen was used to shekhar out the midline.
An 8 mm incision at Shi's point was made with an 11 blade scalpel. A Veress needle was used to gain abdominal access. After 3 clicks, the insufflation was connected to the Veress needle and the opening pressure was noted to be less than 8 mmHg.
The abdomen was then insufflated to a pressure of 12 mmHg. An 8 mm robotic trocar was then inserted. The robotic camera was advanced and intra-abdominal placement was confirmed. The abdomen was examined. No injuries were noted from port entry or
from the Veress needle. No concerning lesions were noted on the surface of the liver or the peritoneum. There appeared to be some adhesions to the sigmoid in the left lower quadrant. The remaining three 8mm robotic ports were placed under direct
visualization in a diagonal fashion from Shi's point to the right lower quadrant, as well as an 8mm assist port in the right lateral mid abdomen, taking care to avoid injury to the right epigastric vessels. The left upper quadrant port was
changed to the air seal port.
A 4 cm Pfannenstiel incision was created 2 fingerbreadths above the pubic symphysis. This was carried down to the anterior fascia with electrocautery and hemostasis was assured. The fascia was incised to just beyond the length of the skin
incision. The fascia was grasped with Mignon's and elevated. The adhesions to the anterior fascia were taken down bluntly from the rectus abdominis muscle and the midline attachment was taken down with electrocautery. This was performed both
superiorly and inferiorly to our incision. The rectus was split along the midline, first scoring the linea alba with electrocautery, then bluntly spitting with a Michelle clamp to reveal the peritoneum, which was grasped and elevated with Kellys. The
peritoneum was incised with Metzenbaum scissors, taking care to avoid injury to intraperitoneal structures. The peritoneum was then incised cranially and caudally to the greatest extent that our incision would allow, taking care to avoid injury to
the bladder. A small Alex with port cap was placed and a robotic 12 mm port was placed through the port cap. Then, the patient was placed in 28 degrees trendelenburg and 10 degrees [id number]. The robot was docked from the patient's left
side. From the RLQ to Shi's point, the instruments introduced were the scissors, camera, bipolar grasper and tip-up grasper, respectively. After the instruments were engaged, I discovered a pendulous flap, about 2 cm long and 5 cm wide, of
preperitoneal flat in front of the camera, obscuring visualization of the left lower quadrant. Using electrocautery, I excised this and discarded it.
The small bowel was retracted out of the pelvis and towards the right upper quadrant. Some adhesions were noted from the left pelvic sidewall to the sigmoid colon, which were taken down with electrocautery. The sigmoid was grasped and elevated to
commence a medial to lateral dissection. The peritoneum overlying the sacral promontory was scored and entered. This dissection was taken medially. However, I did not initially enter the correct plane. Therefore, to avoid injury to important
structures, I switched to a lateral to medial approach. I freed the sigmoid colon and sigmoid mesentery medially until I identified the the left ureter. I switched back to a medial approach and had better view of the rectosigmoid mesentery. I
scored the peritoneum slightly more medially and entered the correct plane. I connected this to my lateral dissection. I continued this superiorly towards the STEVEN pedicle, taking care to avoid injury to the hypogastric nerves. The left ureter was
continuously visualized and kept safe. I dissected the STEVEN pedicle circumferentially. As this was not a cancer dissection, my priority was not to perform a high ligation. Therefore, I ligated the pedicle at a safe distance from the left ureter
and hypogastric nerves with the vessel sealer. I then identified that the left colic artery was just proximal to my ligation point. I circumferentially dissected the left colic artery and then ligated this with the vessel sealer. The STEVEN stump was
completely hemostatic. I grasped the mesentery and elevated it to proceed with a medial to lateral mobilization of the descending colon. I carried this to the inferior border of the pancreas and laterally towards the lateral sidewall. I took down
the lateral attachments of the descending colon up to the proximal descending colon.
I turned my attention back to the pelvis. I continued the dissection inferiorly in the presacral plane, and took this to just beyond the sacral promontory. I scored the peritoneum along the left and right aspects of the rectosigmoid down towards
the anterior reflection. I used the vessel sealer to connect the posterior dissection to the lateral stalks. At this point, the rectosigmoid was adequately mobilized. I performed a flexible sigmoidoscopy and discovered copious liquid stool within
the rectum, which I suctioned away. The rectum appeared healthy up to the rectosigmoid junction. Therefore, I planned for my distal transection point to be just distal to the rectosigmoid junction and scored this with electrocautery on the
peritoneum. I went back on the robotic console. I created a tunnel through the mesorectum at my proposed transection point and divided the mesorectum with the vessel sealer. I stapled and divided at the proximal rectum with 2 green loads of the
60 mm robotic stapler. There was hemostasis at the staple line.
For my proximal transection point, I assessed the sigmoid and distal descending colon. There was inflammation and thickening of the colon wall up to the level of the proximal sigmoid colon. Therefore, I planned to transect at the distal descending
colon just proximal to the inflammation. I elevated the colon at this point with my tip up grasper. I fanned out the mesentery from the divided main sigmoidal artery. I ligated the mesentery from this spot to my transection point on the the
descending colon, coming across the IMV. Anesthesia injected ICG and I evaluated my proposed transection point with firefly, which appeared well-perfused. Additionally, the rectal stump appeared well-perfused except for the right corner of the
staple line. This corner of the rectum was jutting out asymmetrically from the left side. This lended itself well to coming across it again with an additional green load of the 60 mm robotic stapler without completely revising the staple line.
There was an aspect of mesentery that was not included within this staple line. Therefore, another green load was used to come across this.
I elected to proceed with an intracorporeal end-to-end stapled anastomosis with EEA stapler. A colotomy in the devascularized segment of colon was created using the robotic scissors at a point distal to my proposed proximal transection point. The
anvil with a long Prolene suture attached at the tip was carefully passed through the colotomy and advanced proximally up the descending colon, with the long Prolene remaining outside of the colon. The colotomy was closed around the Prolene stitch
using a V-Loc running stitch. The robotic stapler with a blue load was used to staple and divide the descending colon at our proposed transection point where adequate perfusion was noted on firefly. The specimen was placed in the left upper
quadrant. The Prolene attached to the anvil was grasped and pulled through the staple line after removing a few evangelina. I grasped and elevated the anvil and cleaned up the staple line from intervening mesentery and fat. There was one small
diverticula along the anvil staple line. This was secured to the the anvil post using a 2-0 Vicryl pursestring. Now, the colon was seated along the staple line nicely without intervening diverticula or mesentery. The specimen was removed through
the Pfannenstiel port and passed off for pathology.
I checked the reach of the proposed anastomosis and it was inadequate. I turned my attention to the medial aspect of the descending colon mesentery. I divided the base of the mesentery up to the inferior border of the pancreas. I dissected out
the IMV at the inferior border of the pancreas and ligated this with the vessel sealer. As there was now a blind ending IMV within the mesentery, I used the vessel sealer to resect this. I passed this off as specimen. I freed up the descending
colon laterally as well, taking this all the way up to the splenic flexure, but without taking the splenic flexure down. I freed up omental attachments to the descending colon. I checked my reach once more and it was plenty adequate. The
operative field was surveyed and hemostasis was ensured. Sizers were passed up the rectum to ensure adequate circumference and length. The EEA stapler was passed transanally to the distal staple line. The pin was extended at the midpoint of the
crossed staple lines and was connected with the anvil. After ensuring there was no twist to the mesentery and there was no tension, the EEA stapler was closed for 1 minute and fired. Both donuts were intact. A leak test was performed by filling
the pelvis with saline, occluding the proximal lumen and insufflating with the flexible sigmoidoscope. There was no evidence of leak from the anastomosis. Endoscopically, the anastomosis was intact without evidence of bleeding. The colorectum was
desufflated and the flexible sigmoidoscope removed. Anesthesia injected ICG once more in the anastomosis was well-perfused circumferentially on Firefly.
The robotic instruments were removed and the robot was undocked. Using laparoscopic visualization, a TAP block was performed using a total of 30 mL of 0.25% Marcaine with epinephrine mixed with dexamethasone and injecting in the transverse
abdominis plane bilaterally. The remaining ports were removed under direct visualization and no bleeding was noted. The Pfannenstiel incision was closed in layers. First, the peritoneum was closed with a running 0-Vicryl stitch. Then, the
anterior fascia was closed using a #1 Stratafix suture. The incisions were irrigated. The remaining 30 mL of 0.25% Marcaine with epinephrine mixed with dexamethasone were injected around the incisions. The incisions were closed with running
subcuticular 4-0 Monocryl and dressed with Dermabond.
At this point, the procedure was complete. The patient was awoken and extubated without complication. All needle, sponge and instrument counts were reported as correct. The patient tolerated the procedure well and was transferred to the recovery
room in stable condition with the sheppard in place.
DICTATED BY: Jonathan Garsia MD
--- NOTE | 2024-06-02 16:28 | PTCARENOTE ---
Received patient from PACU via bed around 1610 in stable condition. Patient oriented to room. Lap sites and 1 transverse suprapubic with surgical glue CARINA. Urinary catheter draining clear yellow urine. VS stable. Call howe in reach.
[2024-06-02] MEDS: TORADOL 15 MG IV (19:25)
[2024-06-03] MEDS: TYLENOL 1000 MG PO ×4 (00:02→17:31)
[2024-06-03] MEDS: TORADOL 15 MG IV ×4 (01:11→18:16)
[2024-06-03 03:30] VITALS: BP 142/77
[2024-06-03 05:09] VITALS: BP 142/77
[2024-06-03 06:47] LABS: % Basophils 0.1 % (0-2); % Immature Granulocytes 0.3 % (0-0.5); % Lymphocytes 9.6 % (20.5-51.1); % Monocytes 8.7 % (1.7-9.3); % Neutrophils 81.3 % (42.2-75.2); Absolute Lymphocytes 1.2 10^3/uL (1.2-3.4); Absolute Monocytes 1.1 10^3/uL (0.1-0.6); Absolute Neutrophils 10.1 10^3/uL (1.4-6.5); Hematocrit 35.1 % (39.0-52.0); Hemoglobin 12.1 g/dL (13.0-18.0); Mean Corp Hgb Conc. 34.5 g/dL (33.0-37.0); Mean Corpuscular Hgb 29.4 pg (27.0-31.0); Mean Corpuscular Volume 85.4 fL (80.0-94.0); Mean Platelet Volume 10.2 fL (7.4-10.4); Nucleated Red Blood Cells % 0 % (-); Platelet Count 177 10^3/uL (130-400); Red Blood Cell Count 4.11 10^6/uL (4.70-6.10); Red Cell Dist. Width 13.2 % (11.5-14.5); White Blood Cell Count 12.5 10^3/uL (4.8-10.8)
[2024-06-03 07:13] LABS: Blood Urea Nitrogen 18 mg/dl (9-20); Calcium 9.1 mg/dl (8.4-10.2); Carbon Dioxide 28 mmol/L (22-30); Chloride 102 mmol/L (98-107); Estimated Creatinine Clearance 94 ml/min; Glucose 139 mg/dl (70-99); Sodium 137 mmol/L (135-145); eGFR > 60.00
[2024-06-03 07:18] LABS: Potassium 4.9 mmol/L (3.5-5.1)
[2024-06-03 07:22] VITALS: BP 113/68
[2024-06-03] MEDS: LIPITOR 80 MG PO (07:50)
[2024-06-03] MEDS: ENTEREG 12 MG PO ×2 (07:50→20:53)
[2024-06-03] MEDS: ASPIR LOW (ENTERIC COATED) 81 MG PO (07:51)
[2024-06-03] MEDS: ZETIA 10 MG PO (07:51)
--- NOTE | 2024-06-03 11:15 | W.PN.CRS1 ---
Today's Communication / Plan
-
Advance diet
Dispo planning
Assessment/Plan
-
53 yo male with a h/o complicated diverticulitis now POD #1 Robotic sigmoidectomy, lysis of adhesions, mesenteric angiography with ICG, flexible sigmoidoscopy, laparoscopic tap block
AFVSS
Labs stable post operatively
Mild reactive leukocytosis, expected
Tolerating clears, passing flatus/stools
--Advance to regular diet
--Analgesics scheduled and prn
--OOB/Ambulate
--D/C IVF
--Discontinue sheppard
--Lovenox and SCD's for VTE ppx
Tentative d/c later today vs tomorrow if tolerating diet
Subjective Data
Procedure
06/02/23 Robotic sigmoidectomy, lysis of adhesions, mesenteric angiography with ICG, flexible sigmoidoscopy, laparoscopic tap block
Subjective Data
Date of Service: June 03, 2024
Patient seen and examined at bedside with Dr. Louise. Denies n/v. Denies pain. Passing flatus and had BM x2.
Objective Data
-
Vital Signs
Temp Pulse Resp BP Pulse Ox
97.7 F 74 16 113/68 96
06/03/24 07:22 06/03/24 07:22 06/03/24 07:22 06/03/24 07:22 06/03/24 07:48
Intake & Output
06/02/24 06/03/24 06/04/24
06:59 06:59 06:59
Intake Total 400 / 400 1600 / 1600
Output Total 2099
Balance -1700 / -1700 1600 / 1600
Intake:
Oral fluids 1000 / 1000
IV fluids (Total) 400 / 400 600 / 600
Normosol 300 / 300
Output:
Urine, Sheppard 2099
Lab Results
06/03/24 06:26
06/03/24 06:26
Physical Exam
-
General: No Acute Distress
Abdomen: Soft, Non Distended and Non Tender
Skin: Warm and Dry
Incision: Clear, Dry, Intact
[2024-06-03 11:52] VITALS: BP 147/88
[2024-06-03 15:38] VITALS: BP 140/81
--- NOTE | 2024-06-03 16:24 | CM ---
IA completed with pt and chart review completed.
Pt is a 53yr old male admitted for robotic sigmoidectomy.
Pt lives with his and children in a 2 story home with 3steps to enter.
Pt is indep and works at [employer].
Pt has a BiPap through [employer]
No hx of VN/SNF
PLAN; DC to home with no needs.
[2024-06-03 23:33] VITALS: BP 152/99
[2024-06-04] MEDS: TORADOL 15 MG IV ×2 (00:16→06:10)
[2024-06-04] MEDS: TYLENOL 1000 MG PO ×3 (00:16→11:13)
[2024-06-04 05:55] LABS: Hematocrit 33.4 % (39.0-52.0); Hemoglobin 11.2 g/dL (13.0-18.0); Mean Corp Hgb Conc. 33.5 g/dL (33.0-37.0); Mean Corpuscular Hgb 29.2 pg (27.0-31.0); Mean Platelet Volume 10.9 fL (7.4-10.4); Platelet Count 177 10^3/uL (130-400); Red Blood Cell Count 3.84 10^6/uL (4.70-6.10); Red Cell Dist. Width 13.4 % (11.5-14.5); White Blood Cell Count 10.1 10^3/uL (4.8-10.8)
[2024-06-04 06:18] LABS: Blood Urea Nitrogen 19 mg/dl (9-20); Calcium 8.5 mg/dl (8.4-10.2); Carbon Dioxide 27 mmol/L (22-30); Chloride 103 mmol/L (98-107); Estimated Creatinine Clearance 115 ml/min; Glucose 107 mg/dl (70-99); Sodium 138 mmol/L (135-145); eGFR > 60.00
[2024-06-04 07:49] VITALS: BP 151/75
[2024-06-04] MEDS: ASPIR LOW (ENTERIC COATED) 81 MG PO (08:18)
[2024-06-04] MEDS: ZETIA 10 MG PO (08:18)
[2024-06-04] MEDS: ENTEREG 12 MG PO (08:19)
[2024-06-04] MEDS: LIPITOR 80 MG PO (08:19)
--- NOTE | 2024-06-04 09:44 | W.PN.CRS1 ---
Today's Communication / Plan
-
dispo planning
Assessment/Plan
-
53 yo male with a h/o complicated diverticulitis now POD #1 Robotic sigmoidectomy, lysis of adhesions, mesenteric angiography with ICG, flexible sigmoidoscopy, laparoscopic tap block
AFVSS
Labs stable post operatively. Mild acute anemia secondary to expected intraop losses and hemodilution.
Leukocytosis resolved
Tolerating Regular diet, passing flatus/stools
--Continue regular diet
--Analgesics prn
--OOB/Ambulate
--Lovenox and SCD's for VTE ppx
Discharge to home
Subjective Data
Procedure
06/02/23 Robotic sigmoidectomy, lysis of adhesions, mesenteric angiography with ICG, flexible sigmoidoscopy, laparoscopic tap block
Subjective Data
Date of Service: June 04, 2024
Patient seen and examined at bedside with Dr. Louise. Nory n/v. Tolerating diet. Passing some loose grainy stools with flatus. Minimal pain, soreness was relieved with IV toradol. Voiding well since sheppard removed.
Objective Data
-
Vital Signs
Temp Pulse Resp BP Pulse Ox
97.9 F 64 14 151/75 96
06/04/24 07:49 06/04/24 07:49 06/04/24 07:49 06/04/24 07:49 06/04/24 07:49
Intake & Output
06/03/24 06/04/24 06/05/24
06:59 06:59 06:59
Intake Total 400 / 400 3040 / 3040
Output Total 2099 1750 / 1750
Balance -1700 / -1700 1290 / 1290
Intake:
Oral fluids 2440 / 2440
IV fluids (Total) 400 / 400 600 / 600
Normosol 300 / 300
Output:
Urine, Sheppard 2099 650 / 650
Urine, Voided 1100 / 1100
Other:
Number of approximated MODERATE 3
amounts of urine
Lab Results
06/04/24 04:34
06/04/24 04:34
Physical Exam
-
General: No Acute Distress
Abdomen: Soft, Non Distended and Non Tender
Skin: Warm and Dry
Incision: Clear, Dry, Intact
--- NOTE | 2024-06-04 09:47 | W.DCSUMMARY ---
Discharge Summary
Discharge Data
Date of Admission: 06/02/24
Date of Discharge: 06/04/24
-
Pending Results: No
Hospital Course
Mr Barrios is a 53 yo male with a h/o complicated diverticulitis who presented for robotic sigmoidectomy with lysis of adhesions. He tolerated the procedure well with minimal pain post operatively. Diet was advanced post operatively and well
tolerated with good evidence of bowel recovery. He was discharged to home for outpatient follow up in the coming weeks.
Discharge Plan
-
Patient Disposition: Home (Routine Discharge)
Discharge Diagnosis/Procedures: Robotic sigmoidectomy
Condition: Good
Diet: As tolerated and Regular
Additional Diets: eat small portions at first
Activity: No strenuous activity
Additional Activity: Do not lift over 10lbs (gallon of milk)
Driving Restrictions: Wait until comfortable twisting/off narcotics
Bathing Restrictions: OK to Shower
Wound Care: Allow the glue to flake off your incisions on its own over the next 2-3 weeks. Avoid scrubbing or picking it off.
Activity Restrictions/Additional Instructions:
Call your surgeon if you have a fever >100.5, nausea with vomiting or worsening pain.
Referrals:
Augustin Gunter DO [Family Provider] -
Jonathan Garsia MD [Active] - in two to four weeks
Prescriptions:
New
acetaminophen 325 mg tablet
650 mg PO Q4HPRN PRN (Reason: mild pain) Qty: 1 0RF
oxycodone 5 mg tablet
5 mg PO Q4HPRN PRN (Reason: breakthrough/severe pain) Qty: 15 0RF
Continued
atorvastatin 80 mg tablet
80 mg PO DAILY
aspirin 81 mg Tablet,Delayed Release (Dr/Ec)
81 mg PO DAILY
ezetimibe 10 mg Tablet
10 mg PO DAILY
Discontinued
metronidazole 500 mg Tablet
1,000 mg PO .PERPROTOCOL
Patient Comments:
as directed pre op. took at 1400,1500, and 2200 on 06/01/24
neomycin 500 mg Tablet
500 mg PO .PERPROTOCOL
Patient Comments:
as directed pre op. Took at 1400,1500, and 2200 on 06/01/24
Suflave 178.7-7.3-0.5 gram Recon Soln
1 ml PO .PERPROTOCOL
Patient Comments:
as directed pre op
Discharge Orders:
Discharge Patient (As Directed); Ordered 06/04/24
Ordered By: Erika French
Discharge Date and Time
Print Language: VIET[place]ESE
[2024-06-04 11:05] VITALS: BP 150/78
== END 2024-06-04 11:25 | disposition home or self-care (01) | DRG 331 ==
LOC: 2 SOUTH 06:13
PROVIDERS: Registered Nurse; ADMITTING PHYSICIAN Surgery; FAMILY PHYSICIAN Family Medicine
PROC: 8E0W4CZ Robotic Assisted Procedure of Trunk Region, Percutaneous Endoscopic Approach (ICD-10-PCS; 2024-06-02)
PROC: 0DTN4ZZ Resection of Sigmoid Colon, Percutaneous Endoscopic Approach (ICD-10-PCS; 2024-06-02)
PROC: 0DNN4ZZ Release Sigmoid Colon, Percutaneous Endoscopic Approach (ICD-10-PCS; 2024-06-02)
DX: K57.32 Diverticulitis of large intestine without perforation or abscess without bleeding (principal); Z79.82 Long term (current) use of aspirin; G47.30 Sleep apnea, unspecified; K21.9 Gastro-esophageal reflux disease without esophagitis; E78.5 Hyperlipidemia, unspecified; Z80.0 Family history of malignant neoplasm of digestive organs; Z80.9 Family history of malignant neoplasm, unspecified; Z82.49 Family history of ischemic heart disease and other diseases of the circulatory system; K66.0 Peritoneal adhesions (postprocedural) (postinfection)
CPT/HCPCS: 88305; 88307; 36415; 80048; 80053; 85025; 85027; 85610; 85730; 86850; 86900; 86901

== ENCOUNTER 2024-06-05 17:46 | Inpatient (IN) | payer OTHER, SELFPAY ==
[2024-06-05] VITALS (8 sets, daily range): BP systolic 128–153; BP diastolic 78–93; BMI 30.3; BMI 29.1
--- NOTE | 2024-06-05 12:08 | ED.GENMED ---
ED Provider Triage
<Perlita Persaud INJECTION MOLDER - Last Filed: 06/05/24 12:12>
-
Patient seen by provider in Triage?: Seen in Triage
Attestation: A medical screening examination has been initiated by a qualified medical provider. Based on the assessment performed at this time, it has been determined that an emergent medical condition may exist and the patient has been informed
that further medical evaluation and possible additional diagnostic testing may be needed.
HPI: 53-year-old male who had a sigmoidectomy by Dr. Garsia on 06/02.
Here for fever 101.8 last night, had Tylenol 1000 mg 8 a.m. Developed SOB and pain in left shoulder. yesterday after noon after being discharged for hospital.
GENERAL: Alert , in no apparent distress
EYE: No visual abnormalities.
NECK: Trachea midline
ENT: No visible abnormalities.
LUNGS: No acute respiratory distress
NEUROLOGICAL: Alert and oriented
SKIN: Skin intact. No visible changes.
MUSCULOSKELETAL: Moving extremities normally
PSYCH: Normal and appropriate interaction.
This is a medical evaluation conducted in person to initiate diagnostic evaluation and provide initial therapeutics. Please see further documentation by the treating clinician.
History of Present Illness
<Perlita Persaud, INJECTION MOLDER - Last Filed: 06/05/24 12:12>
General
Chief Complaint: Post Operative Problem(s)
Time Seen by Provider: 06/05/24 14:35
<Mirtha An PA-C - Last Filed: 06/05/24 18:06>
General
Source: patient
Exam Limitations: none
Nursing documentation reviewed up to this point in time: agreed with
History of Present Illness
History of Present Illness:
53-year-old male with a past medical history of hyperlipidemia, diverticulitis presents emergency department today with concerns of shortness of breath, chest pain and fevers since last night. Patient reports that he is 3 days status post
sigmoidectomy for complicated diverticulitis and notes that he has been recovering well and has not had any abdominal pain or vomiting. Patient reports that he started to have fever last night of 101 followed by chest discomfort that went to his
shoulders. He denies any redness or swelling or pain in his lower extremities. He states that he has had a runny nose and cough as well intermittently. He talked to Dr. Garsia's office and spoke to Juliet who recommended emergency department
evaluation.
Past History
<Perlita Persaud INJECTION MOLDER - Last Filed: 06/05/24 12:12>
Past History
ED Past Medical History: Hypercholesterolemia and Other (Diverticulosis, high calcium score)
Review of Systems
<Mirtha An PA-C - Last Filed: 06/05/24 18:06>
Review of Systems
All Other Systems: ROS reviewed and negative except as documented in HPI and ROS
Phy Exam
<Mirtha An PA-C - Last Filed: 06/05/24 18:06>
Physical Exam
Physical Exam:
General: Patient is well appearing and in no acute distress; non-toxic
Skin: Warm and dry, no rashes or lesions
Head: Normocephalic, atraumatic
Eyes: Sclera non-icteric. EOMs intact.
Cardiac: Regular rate and rhythm, no murmurs
Peripheral Vascular: No lower extremity swelling or edema
Pulm: Normal respiratory effort, no wheezes, rales, rhonchi, mild conversational dyspnea noted
Abdomen: No abdominal tenderness to palpation
Neuro: CN II-XII intact, no focal neurologic deficits.
Psychiatric: Appropriate mood and affect.
Course
<Perlita Persaud INJECTION MOLDER - Last Filed: 06/05/24 12:12>
Orders/Labs/Results
Orders:
Orders
06/05/24 12:06
ECG [Electrocardiogram (*1)] Urgent
Reason for Study: Chest Pain
EKG- Treatment ONCE
06/05/24 12:11
CT Chest PE Study Urgent
Comment:
Reason For Exam: L chest pain with left shoulder pain 3 d post op
06/05/24 12:57
Complete Blood Count/With Diff Urgent
Comprehensive Metabolic Panel Urgent
06/05/24 14:48
Troponin I Urgent
06/05/24 15:10
COVID-19 Antigen Urgent
Source: Nasal Swab
Influenza A+B Rapid Molecular Urgent
RANDELL Source: Nasal Swab
Specimen Description:
06/05/24 17:02
Admit/Transfer Patient As Directed
Co-Sign Provider:
Level of Care: Inpatient admission
Assign to:: Medical/Surgical
Physician / Group: Hospitalist
Diagnosis: Fever
Reason for Hospitalization: .
Expected length of stay greater than two midnights?: Yes
ELOS- Estimated Length of Stay in days: 3
I certify the patient meets the requirements for IP care: Yes
PRN Pain Medication Management As Directed
May give lesser potent ordered pain med per pt: Yes
preference::
Protocol:: Medication orders for pain may be administered in a
manner that supports deferring to patient preference
when the pt is:
- Requesting an ordered lesser potent pain medication.
Least to most potent pain medications are defined
as: acetaminophen < NSAID < tramadol < opioids
(morphine, oxycodone, hydromorphone).
- Requesting a lesser dose of the same medication IF
ORDERED.
- Requesting a less intrusive route of administration
if both routes are prescribed by the provider (PO <
IV).
06/05/24 17:37
Blood Culture Stat
RANDELL Source: Blood/Venous
Specimen Description:
06/05/24 17:39
Code Status As Directed
Resuscitation Status: Full Code
06/05/24 18:01
Meropenem [Merrem] 1,000 mg IV Q12H
Abnormal Lab Results
06/05/24
12:57
WBC 11.9 H 10^3/uL
(4.8-10.8)
RBC 4.58 L 10^6/uL
(4.70-6.10)
Absolute Neuts (auto) 8.1 H 10^3/uL
(1.4-6.5)
Absolute Monos (auto) 1.2 H 10^3/uL
(0.1-0.6)
Lymphocytes % 19.4 L %
(20.5-51.1)
Monocytes % 9.9 H %
(1.7-9.3)
Glucose 106 H mg/dl
(70-99)
AST 64 H U/L
(17-59)
ALT 104 H U/L
(0-50)
06/05/24 12:57
06/05/24 12:57
Vital Signs
Initial and Last Documented VS:
Initial Vital Signs
Temp Pulse Resp BP Pulse Ox
99 F 106 20 132/88 100
06/05/24 12:51 06/05/24 12:51 06/05/24 12:51 06/05/24 12:51 06/05/24 12:51
Last Documented Vital Signs
Temp Pulse Resp BP Pulse Ox
99 F 94 16 134/83 95
06/05/24 12:51 06/05/24 16:06 06/05/24 16:06 06/05/24 16:00 06/05/24 16:00
Rodneylt;Mirtha An PA-C - Last Filed: 06/05/24 18:06>
Orders/Labs/Results
Orders:
Orders
06/05/24 12:06
ECG [Electrocardiogram (*1)] Urgent
Reason for Study: Chest Pain
EKG- Treatment ONCE
06/05/24 12:11
CT Chest PE Study Urgent
Comment:
Reason For Exam: L chest pain with left shoulder pain 3 d post op
06/05/24 12:57
Complete Blood Count/With Diff Urgent
Comprehensive Metabolic Panel Urgent
06/05/24 14:48
Troponin I Urgent
06/05/24 15:10
COVID-19 Antigen Urgent
Source: Nasal Swab
Influenza A+B Rapid Molecular Urgent
RANDELL Source: Nasal Swab
Specimen Description:
06/05/24 17:02
Admit/Transfer Patient As Directed
Co-Sign Provider:
Level of Care: Inpatient admission
Assign to:: Medical/Surgical
Physician / Group: Hospitalist
Diagnosis: Fever
Reason for Hospitalization: .
Expected length of stay greater than two midnights?: Yes
ELOS- Estimated Length of Stay in days: 3
I certify the patient meets the requirements for IP care: Yes
PRN Pain Medication Management As Directed
May give lesser potent ordered pain med per pt: Yes
preference::
Protocol:: Medication orders for pain may be administered in a
manner that supports deferring to patient preference
when the pt is:
- Requesting an ordered lesser potent pain medication.
Least to most potent pain medications are defined
as: acetaminophen < NSAID < tramadol < opioids
(morphine, oxycodone, hydromorphone).
- Requesting a lesser dose of the same medication IF
ORDERED.
- Requesting a less intrusive route of administration
if both routes are prescribed by the provider (PO <
IV).
06/05/24 17:37
Blood Culture Stat
RANDELL Source: Blood/Venous
Specimen Description:
06/05/24 17:39
Code Status As Directed
Resuscitation Status: Full Code
06/05/24 18:01
Meropenem [Merrem] 1,000 mg IV Q12H
Abnormal Lab Results
06/05/24
12:57
WBC 11.9 H 10^3/uL
(4.8-10.8)
RBC 4.58 L 10^6/uL
(4.70-6.10)
Absolute Neuts (auto) 8.1 H 10^3/uL
(1.4-6.5)
Absolute Monos (auto) 1.2 H 10^3/uL
(0.1-0.6)
Lymphocytes % 19.4 L %
(20.5-51.1)
Monocytes % 9.9 H %
(1.7-9.3)
Glucose 106 H mg/dl
(70-99)
AST 64 H U/L
(17-59)
ALT 104 H U/L
(0-50)
06/05/24 12:57
06/05/24 12:57
Vital Signs
Initial and Last Documented VS:
Initial Vital Signs
Temp Pulse Resp BP Pulse Ox
99 F 106 20 132/88 100
06/05/24 12:51 06/05/24 12:51 06/05/24 12:51 06/05/24 12:51 06/05/24 12:51
Last Documented Vital Signs
Temp Pulse Resp BP Pulse Ox
99 F 94 16 134/83 95
06/05/24 12:51 06/05/24 16:06 06/05/24 16:06 06/05/24 16:00 06/05/24 16:00
<Tarah Melendez MD - Last Filed: 06/05/24 15:34>
Orders/Labs/Results
Orders:
Orders
06/05/24 12:06
ECG [Electrocardiogram (*1)] Urgent
Reason for Study: Chest Pain
EKG- Treatment ONCE
06/05/24 12:11
CT Chest PE Study Urgent
Comment:
Reason For Exam: L chest pain with left shoulder pain 3 d post op
06/05/24 12:57
Complete Blood Count/With Diff Urgent
Comprehensive Metabolic Panel Urgent
06/05/24 14:48
Troponin I Urgent
06/05/24 15:10
COVID-19 Antigen Urgent
Source: Nasal Swab
Influenza A+B Rapid Molecular Urgent
RANDELL Source: Nasal Swab
Specimen Description:
06/05/24 17:02
Admit/Transfer Patient As Directed
Co-Sign Provider:
Level of Care: Inpatient admission
Assign to:: Medical/Surgical
Physician / Group: Hospitalist
Diagnosis: Fever
Reason for Hospitalization: .
Expected length of stay greater than two midnights?: Yes
ELOS- Estimated Length of Stay in days: 3
I certify the patient meets the requirements for IP care: Yes
PRN Pain Medication Management As Directed
May give lesser potent ordered pain med per pt: Yes
preference::
Protocol:: Medication orders for pain may be administered in a
manner that supports deferring to patient preference
when the pt is:
- Requesting an ordered lesser potent pain medication.
Least to most potent pain medications are defined
as: acetaminophen < NSAID < tramadol < opioids
(morphine, oxycodone, hydromorphone).
- Requesting a lesser dose of the same medication IF
ORDERED.
- Requesting a less intrusive route of administration
if both routes are prescribed by the provider (PO <
IV).
06/05/24 17:37
Blood Culture Stat
RANDELL Source: Blood/Venous
Specimen Description:
06/05/24 17:39
Code Status As Directed
Resuscitation Status: Full Code
06/05/24 18:01
Meropenem [Merrem] 1,000 mg IV Q12H
Abnormal Lab Results
06/05/24
12:57
WBC 11.9 H 10^3/uL
(4.8-10.8)
RBC 4.58 L 10^6/uL
(4.70-6.10)
Absolute Neuts (auto) 8.1 H 10^3/uL
(1.4-6.5)
Absolute Monos (auto) 1.2 H 10^3/uL
(0.1-0.6)
Lymphocytes % 19.4 L %
(20.5-51.1)
Monocytes % 9.9 H %
(1.7-9.3)
Glucose 106 H mg/dl
(70-99)
AST 64 H U/L
(17-59)
ALT 104 H U/L
(0-50)
06/05/24 12:57
06/05/24 12:57
Vital Signs
Initial and Last Documented VS:
Initial Vital Signs
Temp Pulse Resp BP Pulse Ox
99 F 106 20 132/88 100
06/05/24 12:51 06/05/24 12:51 06/05/24 12:51 06/05/24 12:51 06/05/24 12:51
Last Documented Vital Signs
Temp Pulse Resp BP Pulse Ox
99 F 94 16 134/83 95
06/05/24 12:51 06/05/24 16:06 06/05/24 16:06 06/05/24 16:00 06/05/24 16:00
Rodneylt;Mirtha An PA-C - Last Filed: 06/05/24 18:06>
MDM/Problems Addressed
Differential Diagnosis Includes:
see below
MDM/Problems Addressed:
NUMBER AND COMPLEXITY OF PROBLEMS ADDRESSED AT THE ENCOUNTER
� Chronic conditions affecting care: diverticulosis, sleep apnea, hyperlipidemia
� Acute Exacerbation and/or Progression of Chronic Illness: n/a
� Differential Diagnosis includes: pneumonia, covid-19, influenza, PE, intraabdominal abscess
AMOUNT AND/OR COMPLEXITY OF DATA TO BE REVIEWED AND ANALYZED
� I performed an independent evaluation of and my interpretation is:
EKG: normal sinus rhythm, rate 97, no concerning ischemic changes
CT: negative for pneumonia, PE
Laboratory Studies: AST and ALT elevated, troponin undetectable
Other:
� Review of other/old records: reviewed discharge summary from 06/04/24, was able to advance diet without any issues, was discharged
� Clinical information was obtained by an independent historian: present with patient who helped provide history
� Prescriptions/Medications Considered but not given: none
� Further testing considered but not performed: n/a
RISK OF COMPLICATIONS AND/OR MORBIDITY OR MORTALITY OF PATIENT MANAGEMENT
� Social determinants of health affecting care: n/a
� Discussion with other providers: ER attending, colorectal MADDISON Owens
� Escalation of care including admission/observation vs risk of discharge considered:
53 y/o male presents to the emergency department with a post operative fever. He has associated chest pain and shortness of breath. This started last night. He is post-op day 3. No clear etiology to the fever and symptoms at this time--CT negative
for PE, pneumonia. Benign abdominal exam. Reviewed case with colorectal who recommends admission for observation, may consider abdominal CT scan. Case discussed with hospialist.
<Mirtha An PA-C - Last Filed: 06/05/24 18:06>
*Pulse Oximetry
Patient hypoxic: no
*Critical Care Note
Total Time (30-74mins, 75-104mins- exclusive of procedures): Not Applicable
ED Attending Note
<Perlita Persaud NP - Last Filed: 06/05/24 12:12>
-
Portions of this chart may have been created with voice recognition software.� Occasional wrong word or��sound alike� substitutions may have occurred due to the inherent limitations of voice recognition software.
<Tarah Melendez MD - Last Filed: 06/05/24 15:34>
ED Attending Note
Patient seen and examined by attending physician: Yes
I performed the substantive portion of visit, reviewed & personally made and approve the management plan that is documented in note by myself or MAYURI.: Yes
ED Attending Note:
Very pleasant 53-year-old male status post robotic sigmoidectomy, discharged on Wednesday, noted to have a fever last night and again this morning. Denies cough, sore throat, rhinorrhea, abdominal pain, nausea, vomiting, anorexia. He is passing
stool as usual. He denies urinary symptoms. He does note discomfort in the bilateral shoulders which he thinks is related to the air from the surgery. He also describes a vague discomfort across his chest that comes and goes, without specific
provoking or relieving factors. He states that he was 'not calm' earlier and at that time he felt like he could not get his full breath in. He no longer has those symptoms and in fact is without symptoms at this time. On exam, incisions clean dry
and intact, abdomen soft and nontender. Pulse ox normal no respiratory distress. PA discussed with colorectal team likely plan is observation overnight given fever without specific etiology. No PE noted on CT.
Discharge Plan
Departure
Patient Disposition: Admit
Date of Disposition: 06/05/24
Time of Disposition: 16:58
Admit to: Med/Surg
Presentation/result/management discussed w/ accepting MD/DO: Hospitalist
Patient with high blood pressure during this ER visit?: Yes
Condition: Good
Discharge Problem:
Postoperative fever
Interventions
Interventions:
*Risk Screen - Suicide Last Done: 06/05/24 12:51
*General Assessment Last Done: 06/05/24 12:51
*Neglect/Abuse Screening Last Done: 06/05/24 12:51
*ED COVID-19 Vaccine History Last Done: 06/05/24 14:50
ED-Skin Assessment Last Done: 06/05/24 14:51
[2024-06-05 13:18] LABS: % Basophils 0.4 % (0-2); % Eosinophils 1.7 % (0-6); % Immature Granulocytes 0.3 % (0-0.5); % Lymphocytes 19.4 % (20.5-51.1); % Monocytes 9.9 % (1.7-9.3); % Neutrophils 68.3 % (42.2-75.2); Absolute Basophils 0.1 10^3/uL (0-0.2); Absolute Eosinophils 0.2 10^3/uL (0-0.7); Absolute Lymphocytes 2.3 10^3/uL (1.2-3.4); Absolute Monocytes 1.2 10^3/uL (0.1-0.6); Absolute Neutrophils 8.1 10^3/uL (1.4-6.5); Hematocrit 39.7 % (39.0-52.0); Hemoglobin 13.3 g/dL (13.0-18.0); Mean Corp Hgb Conc. 33.5 g/dL (33.0-37.0); Mean Corpuscular Volume 86.7 fL (80.0-94.0); Mean Platelet Volume 10.3 fL (7.4-10.4); Nucleated Red Blood Cells % 0 % (-); Platelet Count 192 10^3/uL (130-400); Red Blood Cell Count 4.58 10^6/uL (4.70-6.10); Red Cell Dist. Width 13.7 % (11.5-14.5); White Blood Cell Count 11.9 10^3/uL (4.8-10.8)
[2024-06-05 13:30] LABS: ALT (SGPT) 104 U/L (0-50); AST (SGOT) 64 U/L (17-59); Albumin 4.2 g/dl (3.5-5.0); Alkaline Phosphatase 74 U/L (38-126); Blood Urea Nitrogen 18 mg/dl (9-20); Calcium 9.6 mg/dl (8.4-10.2); Carbon Dioxide 28 mmol/L (22-30); Chloride 100 mmol/L (98-107); Glucose 106 mg/dl (70-99); Sodium 138 mmol/L (135-145); Total Bilirubin 1.3 mg/dl (0.2-1.3); Total Protein 7.1 g/dl (6.3-8.2); eGFR > 60.00
[2024-06-05 15:19] LABS: Troponin I < 0.012 ng/ml
[2024-06-05 15:40] LABS: COVID-19 Antigen Negative (Negative)
--- NOTE | 2024-06-05 17:02 | HPS.HSE ---
Family Physician
-
Family Physician: Augustin Gunter
Chief Complaint
-
Fever of 1 day duration
History of Present Illness
53-year-old male who underwent robotic sigmoidectomy on June 02 presented to the hospital with fever up to 101.5 at home. Patient felt slightly short of breath and presented to the hospital. Scan of the chest showed moderate pneumoperitoneum
secondary to recent surgery with moderate soft tissue emphysema in the upper abdominal wall/mild atelectasis lower lobes of both lungs.
Patient denied abdominal pain. Reporting normal bowel function, almost solid formed stools. No diarrhea. No toothache. No chest pain other than shoulder pain which he had encounter after colonoscopy also. Tolerating diet with no nausea or vomit
Medical History
Past Medical History
Past Medical History: Reports Other (Hyperlipidemia, central sleep apnea, Coronary artery calcification, sigmoid diverticulitis )
Past Surgical History: Reports Other (robotic ssigmoidectomy on 06/02/24 )
Social History
Tobacco: Non-smoker
Alcohol: Occasional
Drug: None
Personal:
Living: With Family
Employment: Employed (Sales, works from home )
Family History
Family History: CAD
Allergies / Home Medications
Allergies reflects when Allergies were last updated in [employer].
Home Medications with original date entered in [employer]
Allergy/Medication List:
Allergies
Allergy/AdvReac Type Severity Reaction Status Date / Time
No Known Allergies Allergy Verified 06/05/24 12:54
Home Medications
aspirin 81 mg tablet,delayed release 81 mg PO DAILY Blood Clot Prevention/Tx 04/08/24
atorvastatin 80 mg tablet 80 mg PO DAILY High Cholesterol 04/08/24
ezetimibe 10 mg tablet 10 mg PO DAILY 05/31/24
acetaminophen 500 mg tablet (Tylenol Extra Strength) 1,000 mg PO Q6HPRN PRN mild pain 06/05/24
ibuprofen 200 mg tablet 600 mg PO Q6HPRN PRN mild pain 06/05/24
Review of Systems
-
History Source: Patient
A 12 point ROS was completed and negative except as noted: Yes
Constitutional: Reports Fever
EENT: Denies Sore Throat
Respiratory: Reports Trouble Breathing; Denies Cough or Hemoptysis
Cardiac: Denies Chest Pain
Abdomen/GI: Denies Abdominal Pain, Nausea, Diarrhea or Bloody Stools
: Denies Dysuria or Frequency
Musculoskeletal: Denies Joint Pain or Muscle Stiffness
Skin: Denies Itching or Rash
Neurological: Denies Numbness
Endocrine: Denies Temp Intolerance
Hematologic/Lymphatic: Denies Bruising
Psych: Denies Panic Disorder
Physical Exam
Vital Signs
Vital Signs
Temp Pulse Resp BP Pulse Ox
99 F 94 16 134/83 95
06/05/24 12:51 06/05/24 16:06 06/05/24 16:06 06/05/24 16:00 06/05/24 16:00
Physical Exam
General: No Apparent Distress and Comfortable
HEENT: Atraumatic
Respiratory: Clear and Decreased Breath Sounds
Cardiac: S1/S2, Tachycardia and Murmur
GI: Soft, Non Tender, Non Distended and Other (Subcutaneous emphysema felt)
Genito-urinary: Clear Urine and No costovertebral tender
Musculoskeletal: No Clubbing, No Cyanosis and No Edema
Skin: Warm and Dry; No Rash or Jaundice
Neuro: AO x 3 and Nonfocal/grossly intact
Psych: Calm and Intact Judgment/Insight
Laboratory Results
-
06/05/24 12:57
06/05/24 12:57
Laboratory Results
Total Bilirubin 1.3 mg/dl (0.2-1.3) 06/05/24 12:57
AST 64 U/L (17-59) H 06/05/24 12:57
ALT 104 U/L (0-50) H 06/05/24 12:57
Alkaline Phosphatase 74 U/L (38-126) 06/05/24 12:57
Troponin I < 0.012 ng/ml 06/05/24 14:48
Impression/Plan
-
54 years old male presented with fever.
#Fever
Patient reports mild shortness of breath. Negative troponin. CT chest, no PE. EKG normal sinus rhythm with no significant changes from prior.
Patient is nontoxic-appearing. No hypotension. Positive mild leukocytosis
Admit the patient to the hospital
Differential diagnosis include infectious causes unknown infectious
Will do blood culture
Patient received IV Zosyn during hospitalization, will do meropenem for now
IV fluid due to clinical dehydration
No dysuria, urine looks clear. No skin rash. No leg pain. No hypoxia. No cough/toothache/sinus pain
Consulted ID, follow-up with recommendations
#Status post robotic sigmoidectomy, lysis of adhesions, mesenteric angiography with ICG, flexible sigmoidoscopy by Dr Garsia on 06/02/24
Seems to have uneventful course other than the fever. Good bowel function. No abdominal pain. Used Tylenol only at home. Surgery sites/holes look clean and no discharge seen. Mild subcutaneous emphysema felt on anterior abdominal wall
#Mild transaminitis, likely dehydration. Will give IV fluid
# History of mixed hyperlipidemia
#History of central sleep apnea, continue with home device.
#History of coronary artery calcification. Continue high-dose statin/Zetia and usual dose of aspirin
# DVT prophylaxis
Total time spent to see the patient, examine the patient, review data and lab results, discuss treatment plan with patient, ER doctor, nursing staff around 75 minutes
[2024-06-05] MEDS: STERILE WATER FOR INJECTION 10 ML IV ×2 (18:25→23:02)
[2024-06-05] MEDS: MERREM 500 MG IV ×2 (18:25→23:02)
[2024-06-05] MEDS: TYLENOL 1000 MG PO (18:38)
--- NOTE | 2024-06-05 19:02 | CON.CRS ---
Consultation
-
Performing Provider: Jonathan Garsia MD
Reason for Consultation: Fever
Medical History
-
History of Present Illness:
Patient is a 53-year-old male with PMH of GERD, HLD, RAINA (on BiPAP at night), elevated calcium score, and history of perforated diverticulitis who underwent elective robotic sigmoidectomy on 06/02/2024. He did well postoperatively and was discharged
on 06/04. Yesterday evening, the patient measured a temperature of 101.5. Overnight, he reported chills. This morning, he reported a fever of 100.4. He was taking Tylenol, so states that it may have been masking additional fevers. He otherwise
denies any symptoms. He denies any chest pain or shortness of breath. His noted that he was taking deeper, quicker breaths with increased accessory muscle use. He denies any increasing abdominal pain, nausea, vomiting or obstipation. He has
been passing flatus and had a semiformed stool today. Denies any hematochezia. Denies any urinary symptoms such as urinary frequency or dysuria. He denies any leg pain or swelling. In the ED, a CT chest was done which ruled out a PE, but was
noted to have pneumoperitoneum, likely postoperative in nature, and atelectasis. WBC was 11.9 without a left shift. Hb 13.3, Cr 1.1, T. bili 1.3, AST 64, ALT 104, troponin negative, EKG NSR.
Past Medical History
Past Medical History: Other (GERD, HLD, RAINA (on BiPAP at night), elevated calcium score (nonobstructive stress test))
Past Surgical History: Other (Left thigh excision, robotic sigmoidectomy)
Social History
Tobacco: Non-Smoker
Alcohol: Occasional
Drug: None
Personal:
Living: With Family
Employment: Employed
Family History
Family History: Other (Grandfather-colon cancer, mother-unknown adenocarcinoma)
Allergies / Home Medications
Allergy/AdvReac Type Severity Reaction Status Date / Time
No Known Allergies Allergy Verified 06/05/24 12:54
�Medication �Instructions �Recorded �Confirmed �Type
aspirin 81 mg tablet,delayed 81 mg PO DAILY Blood Clot 04/08/24 06/05/24 History
release Prevention/Tx
atorvastatin 80 mg tablet 80 mg PO DAILY High Cholesterol 04/08/24 06/05/24 History
ezetimibe 10 mg tablet 10 mg PO DAILY 05/31/24 06/05/24 History
acetaminophen 500 mg tablet 1,000 mg PO Q6HPRN PRN mild pain 06/05/24 06/05/24 History
(Tylenol Extra Strength)
ibuprofen 200 mg tablet 600 mg PO Q6HPRN PRN mild pain 06/05/24 06/05/24 History
Review of Systems
-
A 10 point review of systems was completed, and was negative except as per HPI.
Physical Exam
Vital Signs
Temp 101.2 F H 06/05/24 18:37
Pulse 94 06/05/24 16:06
Resp Rate 16 06/05/24 18:03
Blood pressure 139/87 06/05/24 18:00
SaO2 95 06/05/24 18:03
06/04/24 06/05/24 06/06/24
06:59 06:59 06:59
Actual Weight 98.5 kg
Body Mass Index (BMI) 30.3
Lab Results / Allergies
06/05/24 12:57
06/05/24 12:57
WBC 11.9 10^3/uL (4.8-10.8) H 06/05/24 12:57
Hgb 13.3 g/dL (13.0-18.0) 06/05/24 12:57
Hct 39.7 % (39.0-52.0) 06/05/24 12:57
Plt Count 192 10^3/uL (130-400) 06/05/24 12:57
Abs Immat Gran (auto) 0.0 10^3/uL (0-0.05) 06/05/24 12:57
Neutrophils % 68.3 % (42.2-75.2) 06/05/24 12:57
Allergy/AdvReac Type Severity Reaction Status Date / Time
No Known Allergies Allergy Verified 06/05/24 12:54
Physical Exam
General: Well Developed, Well Nourished and No Apparent Distress
HEENT: Normocephalic and Atraumatic
Respiratory: Non Labored Respirations
GI: Soft, Non Tender (No rebound or guarding) and Non Distended
Musculoskeletal: No Edema and Other (Calves nontender to squeeze)
Skin: Warm, Dry and Other (Incisions well-approximated without erythema or drainage; Dermabond intact)
Neuro: AO x 3
Data Reviewed
-
CT Scan: Image Personally Visualized and interpreted, Discussed with Patient and Discussed with Family
Labs: Labs Reviewed by me, Discussed with Patient and Discussed with Family
Assessment / Plan
-
53-year-old male with PMH of GERD, HLD, RAINA (on BiPAP at night), elevated calcium score, and history of perforated diverticulitis who underwent elective robotic sigmoidectomy on 06/02/2024. He did well postoperatively and was discharged on 06/04. He
presents today after fever and chills last night of 101.5 and fever this morning of 100.4, otherwise asymptomatic. Passing flatus and stool without abdominal pain, nausea or vomiting, urinary symptoms or lower extremity pain/edema. noted some
increase in respiratory effort, but he denies chest pain or SOB. In the ED, a CT chest was done which ruled out a PE, but was noted to have pneumoperitoneum, likely postoperative in nature, and atelectasis. WBC was 11.9 without a left shift. Hb
13.3, Cr 1.1, T. bili 1.3, AST 64, ALT 104, troponin negative, EKG NSR.
AFVSS
� Postoperative fever without associated symptoms
�Differential includes atelectasis versus UTI versus early-stage surgical site infection
�Currently, WBC minimally elevated without left shift, incisions without evidence of infection and abdomen nontender, suggesting against SSI
�Follow-up UA
�Most likely seems to be related to atelectasis, but will monitor overnight under observation to ensure resolution versus clinical worsening
-Would hold off on antibiotics now; unless worsening fever curve, hemodynamic instability or source identified
� Okay for regular diet
� Encourage IS to improve atelectasis and OOB
� Okay for pain control with Tylenol, Toradol and oxycodone
� Repeat labs in the a.m. including CMP to trend LFTs; CTAP not currently indicated
� Appreciate hospitalist
[2024-06-05] MEDS: HEPARIN 5000 UNITS SC (19:42)
[2024-06-05] MEDS: NSS 1000 IV (19:43)
[2024-06-06] MEDS: TORADOL 15 MG IV (01:18)
[2024-06-06] MEDS: NSS 1000 IV ×2 (04:58→18:15)
[2024-06-06] MEDS: MERREM 500 MG IV ×4 (04:59→23:26)
[2024-06-06] MEDS: STERILE WATER FOR INJECTION 10 ML IV ×4 (04:59→23:26)
[2024-06-06 05:35] LABS: Hematocrit 34.1 % (39.0-52.0); Hemoglobin 11.6 g/dL (13.0-18.0); Mean Corpuscular Hgb 29.6 pg (27.0-31.0); Mean Platelet Volume 10.6 fL (7.4-10.4); Platelet Count 169 10^3/uL (130-400); Red Blood Cell Count 3.92 10^6/uL (4.70-6.10); Red Cell Dist. Width 13.6 % (11.5-14.5); White Blood Cell Count 9.8 10^3/uL (4.8-10.8)
[2024-06-06 05:54] LABS: ALT (SGPT) 94 U/L (0-50); AST (SGOT) 55 U/L (17-59); Albumin 3.3 g/dl (3.5-5.0); Alkaline Phosphatase 68 U/L (38-126); Blood Urea Nitrogen 16 mg/dl (9-20); Calcium 8.6 mg/dl (8.4-10.2); Carbon Dioxide 26 mmol/L (22-30); Chloride 103 mmol/L (98-107); Estimated Creatinine Clearance 84 ml/min; Glucose 92 mg/dl (70-99); Potassium 3.8 mmol/L (3.5-5.1); Sodium 137 mmol/L (135-145); Total Bilirubin 0.9 mg/dl (0.2-1.3); Total Protein 5.9 g/dl (6.3-8.2); eGFR > 60.00
[2024-06-06 06:48] LABS: Urine Albumin Negative (Neg - Trace); Urine Bilirubin Negative (Negative); Urine Character Clear (Clear); Urine Color Yellow; Urine Glucose Negative (Negative); Urine Ketone Negative (Negative); Urine Leukocyte Negative (Negative); Urine Nitrite Negative (Negative); Urine Occult Blood Negative (Negative); Urine Urobilinogen Negative (Neg - 1+)
[2024-06-06 07:00] VITALS: BP 121/81
--- NOTE | 2024-06-06 07:36 | W.PN.HOSP.TC ---
Today's Communication/Plan
-
Add vancomycin
another set of blood culture
c/w Tylenol
Assessment / Plan
Assessment / Plan
Physical Exam
General: No Apparent Distress and Comfortable
HEENT: Atraumatic
Respiratory: Clear and Decreased Breath Sounds
Cardiac: S1/S2, Tachycardia and Murmur
GI: Soft, Non Tender, Non Distended and Other (Subcutaneous emphysema felt)
Genito-urinary: Clear Urine and No costovertebral tender
Musculoskeletal: No Clubbing, No Cyanosis and No Edema
Skin: Warm and Dry; No Rash or Jaundice
Neuro: AO x 3 and Nonfocal/grossly intact
Psych: Calm and Intact Judgment/Insight
54 years old male presented with fever.
#Fever
Unknown source, rule out infectious source
Empiric Meropenem and add Vancomycin. Await blood culture . did on 06/05 & 06/06
Order echo of heart
Surgery site clean
Abdomen exam is normal
Subcutaneous emphysema is much less felt today
No dysuria, urine looks clear. No skin rash. No leg pain. No hypoxia. No cough/toothache/sinus pain
Consulted ID, follow-up with recommendations
#Status post robotic sigmoidectomy, lysis of adhesions, mesenteric angiography with ICG, flexible sigmoidoscopy by Dr Garsia on 06/02/24
Seems to have uneventful course other than the fever. Good bowel function. No abdominal pain. Used Tylenol only at home. Surgery sites/holes look clean and no discharge seen. Mild subcutaneous emphysema felt on anterior abdominal wall
#Mild transaminitis, likely dehydration. Will give IV fluid
# History of mixed hyperlipidemia
#History of central sleep apnea, continue with home device.
#History of coronary artery calcification. Continue high-dose statin/Zetia and usual dose of aspirin
# DVT prophylaxis
Total time spent to see the patient, examine the patient, review data and lab results, discuss treatment plan with patient, ER doctor, nursing staff around 75 minutes
Anticipated Discharge: > 48 hours
Subjective/Interval History
-
Date of Service: June 06, 2024
Objective Data
-
Labs:
Laboratory Results
06/06/24
04:26
WBC 9.8
Hgb 11.6 L
Hct 34.1 L
Plt Count 169
Sodium 137
Potassium 3.8
Chloride 103
Carbon Dioxide 26
BUN 16
Creatinine 1.1
Glucose 92
Calcium 8.6
Total Bilirubin 0.9
AST 55
ALT 94 H
Alkaline Phosphatase 68
Vital Signs:
Vital Signs
Temp Pulse Resp BP Pulse Ox
99.5 F 83 16 128/78 96
06/06/24 04:52 06/05/24 23:00 06/05/24 23:00 06/05/24 23:00 06/05/24 23:00
I&O
06/05/24 06/06/24 06/07/24
06:59 06:59 06:59
Intake Total 2640 / 2640
Output Total 550 / 550
Balance 2089
--- NOTE | 2024-06-06 08:10 | PHA.VAN.IN ---
Assessment
- Assessment
Renal Function: Appears similar to baseline
Maximum Temperature: 101.2 F - 06/05/24 18:37 - oral
Concomitant Antimicrobials: meropenem
AUC Dosing Plan
- Dosing Variables
Dosing Weight (kg): 94.7
Dosing CrCl (ml/min): 84
Vd coefficient (L/kg): 0.7
- Empiric Dosing
Initial / Loading Dose: 1250mg - administration pending
Maintenance Regimen: Vanc 1000mg Q12H starting at 1800
Estimated AUC (mcg*h/mL): 422
Estimated Peak (mcg*h/mL): 25.6
Estimated Trough (mcg/ml): 11.3
Estimated Half Life (H): 9.3
- Monitoring
No levels ordered at this time: consider levels in next few days; follow renal function
Pharmacokinetics Vancomycin I
- -
Patient Age: 53
Patient Sex: Male
Vancomycin Day #: 1
Indication: Bacteremia
Requesting Provider: Dr. Bal
Pertinent Antimicrobial Allergies:
NKDA
Height / Weight:
Height 5 ft 11 in
Actual Weight 94.665 kg
Pertinent Past Medical History: s/p sigmoidectomy
- Vital Signs / Lab Results
Temp Pulse Resp BP Pulse Ox
99.0 F 85 16 121/81 95
06/06/24 07:00 06/06/24 07:00 06/06/24 07:00 06/06/24 07:00 06/06/24 07:00
Lab Results - Hematology
06/05/24 06/06/24
12:57 04:26
WBC 11.9 H 9.8
Lab Results - Chemistry
06/05/24 06/06/24
12:57 04:26
BUN 18 16
Creatinine 1.1 1.1
Estimated Creat Clear 84
Albumin 4.2 3.3 L
Lab Results - Urine
06/06/24
04:58
Urine Nitrite Negative
Ur Leukocyte Esterase Negative
Microbiology Results
06/05/24 15:10 Influenza Types A & B ([facility]) - Final
Nasal Swab Negative for Influenza A & B, NAAT
Negative results must be combined with clinical observations
and patient history.
Nucleic Acid Amplification test (NAAT)performed on the
[employer] platform.
[2024-06-06 09:17] LABS: Erythrocyte Sed Rate 24 mm/hour (0-20)
[2024-06-06] MEDS: VANCOCIN 275 MG IV (09:49)
[2024-06-06] MEDS: ZETIA 10 MG PO (09:50)
[2024-06-06] MEDS: HEPARIN 5000 UNITS SC (09:50)
[2024-06-06] MEDS: LIPITOR 80 MG PO (09:50)
[2024-06-06] MEDS: ASPIR LOW (ENTERIC COATED) 81 MG PO (09:50)
--- NOTE | 2024-06-06 10:02 | CON.ID ---
Consultation
-
Date/Time Consultation Requested: June 05 2024 1911
Date/Time Consultation Performed: June 06, 2024 1000
Requesting Provider: Dr. Mia Bal
Performing Provider: Dr. Bre Carter
Reason for Consultation: Postop fever
Chief Complaint / Past History
Chief Complaint
Fever
History of Present Illness
53-year-old male with obstructive sleep apnea, recent history of diverticulitis with free perforation without peritonitis in March 2024, treated with a course of antibiotic, then he underwent robotic sigmoidectomy, lysis of adhesion on May
2024 and discharged June 04. He developed fever the same day at home. Positive sweats with the fever. Fever persisted the next day and therefore he returned to the ER June 05. Temperature was 101.2, white count of 11.9. Chest CT no
PE, moderate pneumoperitoneum and moderate soft tissue emphysema in the upper abdominal wall. Patient was started on vancomycin and meropenem. Patient denies nausea, vomiting, abdominal pain, or diarrhea. No cough or shortness of breath. No
urinary symptoms. No rash. Has mild headache behind his eyeballs which preceded the fever. No rhinorrhea, sinus congestion or sore throat. He feels well overall.
Past History
Additional Past Medical History:
Dyslipidemia
Obstructive sleep apnea on BiPAP
GERD
Cervical radiculopathy
C7-T1 [place] PAULINA June 2021
Sigmoid diverticulitis status post robotic sigmoidectomy June 02, 2024
Vasectomy
Allergy History:
No Known Allergies Allergy (Verified 06/05/24 12:54)
Medications Reviewed: Yes
Current Antibiotics:
Vancomycin
Meropenem
Social History
Tobacco: Non-Smoker
Alcohol: Occasional
Drug: None
Personal:
Living: With Family
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
Family History
Family History: Not Pertinent
Review of Systems
Review of Systems
General: Fever and Chills; Negative Change in Appetite
HEENT: Negative Stiff Neck, Sinus Problems or Pharyngitis
Cardiovascular: Negative Chest Pain or Dyspnea
Respiratory: Negative Dyspnea or Cough
Gasteroenterology: Negative Nausea, Vomiting or Diarrhea
Genital / Urological: Negative Dysuria, Hematuria or Flank Pain
Endocrine: Weakness
Skin / Hair / Nails: Negative Rash
Neurological: Negative Dizziness
All systems: All other systems were reviewed and were negative
Vital Signs
Temp Pulse Resp BP Pulse Ox
99.0 F 85 16 121/81 95
06/06/24 07:00 06/06/24 07:00 06/06/24 07:00 06/06/24 07:00 06/06/24 07:00
Selected Entries
06/05/24
18:37
Temp 101.2 F H
Physical Exam
Physical Exam
Constitutional: No Acute Distress, Comfortable and Other (Up ambulating)
Head: Normocephalic (No frontal or max or sinus tenderness)
Eyes: Negative No Conjunctival Hemorrhage or Sclera Anicteric
Cardiovascular: Regular Rate and S1/S2
Pulmonary: Clear
Gastrointestinal: Soft, Non Tender, Non Distended and Normal Bowel Sounds
Genito-Urinary: Negative CVA Tenderness
Extremities: Negative Edema
Neurological: AO x 3
Lab / Diagnostic Study Results
06/06/24 04:26
06/06/24 04:26
Abs Immat Gran (auto) 0.0 10^3/uL (0-0.05) 06/05/24 12:57
Absolute Neuts (auto) 8.1 10^3/uL (1.4-6.5) H 06/05/24 12:57
Absolute Lymphs (auto) 2.3 10^3/uL (1.2-3.4) 06/05/24 12:57
Absolute Monos (auto) 1.2 10^3/uL (0.1-0.6) H 06/05/24 12:57
Absolute Basos (auto) 0.1 10^3/uL (0-0.2) 06/05/24 12:57
Immature Gran % 0.3 % (0-0.5) 06/05/24 12:57
Neutrophils % 68.3 % (42.2-75.2) 06/05/24 12:57
Lymphocytes % 19.4 % (20.5-51.1) L 06/05/24 12:57
Monocytes % 9.9 % (1.7-9.3) H 06/05/24 12:57
Eosinophils % 1.7 % (0-6) 06/05/24 12:57
Basophils % 0.4 % (0-2) 06/05/24 12:57
ESR Cancelled 06/06/24 07:36
Microbiology Results
Micro:
06/06/24 08:16 Blood Culture - Pending
Blood/Venous
06/05/24 17:57 Blood Culture - Pending
Blood/Venous
06/05/24 15:10 Influenza Types A & B ([facility]) - Final
Nasal Swab Negative for Influenza A & B, NAAT
Negative results must be combined with clinical observations
and patient history.
Nucleic Acid Amplification test (NAAT)performed on the
[employer] platform.
06/05/[address]: MODERATE PNEUMOPERITONEUM secondary to recent robotic sigmoidectomy. MODERATE SOFT TISSUE EMPHYSEMA in the UPPER ABDOMINAL WALL. Mild mosaic attenuation in the lower lobes of both lungs most suggestive of obstructive small airways
disease with multifocal subsegmental atelectasis and air trapping.
Assessment / Plan
# Fever - suspect postop fever
# Leukocytosis - resolved
# Perforated diverticulitis s/p robotic sigmoidectomy, lysis of adhesion 06/02/24.
- Pt without focal signs and symptoms of infection
- COVID, Flu negative
- DC Vancomycin.
- Can continue meropenem for now pending bcx, CT a/p results.
- Follow temps.
# Conditions [employer]PED [employer]
Dyslipidemia
Obstructive sleep apnea on BiPAP
GERD
Cervical radiculopathy
C7-T1 IL PAULINA June 2021
Sigmoid diverticulitis status post robotic sigmoidectomy June 02, 2024
Vasectomy
--- NOTE | 2024-06-06 10:13 | W.PN.CRS1 ---
Today's Communication / Plan
-
CT abdomen and pelvis
Incentive spirometry
ID consult
Assessment/Plan
-
53-year-old male with PMH of GERD, HLD, RAINA (on BiPAP at night), elevated calcium score, and history of perforated diverticulitis who underwent elective robotic sigmoidectomy on 06/02/2024. He did well postoperatively and was discharged on 06/04. He
presents today after fever and chills last night of 101.5 and fever this morning of 100.4, otherwise asymptomatic. Passing flatus and stool without abdominal pain, nausea or vomiting, urinary symptoms or lower extremity pain/edema. noted some
increase in respiratory effort, but he denies chest pain or SOB. In the ED, a CT chest was done which ruled out a PE, but was noted to have pneumoperitoneum, likely postoperative in nature, and atelectasis. WBC was 11.9 without a left shift. Hb
13.3, Cr 1.1, T. bili 1.3, AST 64, ALT 104, troponin negative, EKG NSR.
Tmax of 101.2 yesterday at 1800
WBC 9.8 from 11.6
� Postoperative fever without associated symptoms. Although there is any lack of abdominal pain, given recent surgery and fever, I have ordered a CT abdomen and pelvis with p.o., IV, and rectal contrast to look for source.
�Urinalysis negative
�Add incentive spirometry every 1 hours while awake
-On Merrem and Vanco, ID consult pending
� Okay for regular diet but will keep n.p.o. for now given CT is pending.
� Encourage IS to improve atelectasis and OOB
� Okay for pain control with Tylenol, Toradol and oxycodone
� Appreciate hospitalist
Subjective Data
Subjective Data
Date of Service: June 06, 2024
Patient states he had a fleeting episode of nausea while in the ER last night that he attributes to the heat in the ER. Otherwise he has had no nausea or vomiting. He denies abdominal pain. He has bowel function. He is urinating without
difficulty. He had a fever yesterday evening.
Objective Data
-
Vital Signs
Temp Pulse Resp BP Pulse Ox
99.0 F 85 16 121/81 95
06/06/24 07:00 06/06/24 07:00 06/06/24 07:00 06/06/24 07:00 06/06/24 07:00
Intake & Output
06/05/24 06/06/24 06/07/24
06:59 06:59 06:59
Intake Total 2640 / 2640
Output Total 550 / 550
Balance 2089
Intake:
Oral fluids 1440 / 1440
IV fluids (Total) 1200 / 1200
Output:
Urine, Voided 550 / 550
Other:
Number of approximated MODERATE 2
amounts of urine
Lab Results
06/06/24 04:26
06/06/24 04:26
Physical Exam
-
General: No Acute Distress and AOx3
Abdomen: Soft, Non Distended and Non Tender
Skin: Warm and Dry
[2024-06-06] MEDS: OMNIPAQUE 50 ML PO (11:02)
--- NOTE | 2024-06-06 14:07 | CM ---
Met with pt at bedside
Pt reports he lives with his and 3 children in a 2 story home; 3 steps to enter, 12 steps to 2nd fl
Independent, employed FT, drives
DME - BiPap with [employer]
SNF/HH - no past hx
Has ride at discharge
PCP - Augustin Gunter
Pharm - [facility], [facility]
Plan - anticipate home no needs
[2024-06-06 15:00] VITALS: BP 133/83
[2024-06-06] MEDS: LOVENOX 40 MG SC (18:15)
[2024-06-06 23:00] VITALS: BP 138/89
[2024-06-07] MEDS: NSS 1000 IV (04:34)
[2024-06-07] MEDS: STERILE WATER FOR INJECTION 10 ML IV ×2 (06:14→11:44)
[2024-06-07] MEDS: MERREM 500 MG IV ×2 (06:14→11:44)
--- NOTE | 2024-06-07 06:35 | W.PN.HOSP.TC ---
Today's Communication/Plan
-
IV Abx
c/w oral diet
Stop IVF
Assessment / Plan
Assessment / Plan
Physical Exam
General: No Apparent Distress and Comfortable
HEENT: Atraumatic
Respiratory: Clear and Decreased Breath Sounds
Cardiac: S1/S2, Tachycardia and Murmur
GI: Soft, Non Tender, Non Distended and Other (Subcutaneous emphysema not felt)
Genito-urinary: Clear Urine and No costovertebral tender
Musculoskeletal: No Clubbing, No Cyanosis and No Edema
Skin: Warm and Dry; No Rash or Jaundice
Neuro: AO x 3 and Nonfocal/grossly intact
Psych: Calm and Intact Judgment/Insight
54 years old male presented with fever.
#Fever
Possibly related to intra-abdominal source
CT A/P 05/27 no localized
Empiric Meropenem and
IV Vancomycin was added , stopped by ID
negative blood culture . did on 06/05 & 06/06
Transthoracic Echo of heart, no vegetation.
Surgery site clean
WBC is normal.
No dysuria, urine looks clear. No skin rash. No leg pain. No hypoxia. No cough/toothache/sinus pain
Consulted ID, follow-up with recommendations
#Status post robotic sigmoidectomy, lysis of adhesions, mesenteric angiography with ICG, flexible sigmoidoscopy by Dr Garsia on 06/02/24
Seems to have uneventful course other than the fever. Good bowel function. No abdominal pain. Used Tylenol only at home. Surgery sites/holes look clean and no discharge seen. Subcutaneous emphysema not felt.
#Mild transaminitis, likely dehydration. Resolved. No need for more IVF
# History of mixed hyperlipidemia
#History of central sleep apnea, continue with home device.
#History of coronary artery calcification. Continue high-dose statin/Zetia and usual dose of aspirin
# DVT prophylaxis
Total time spent to see the patient, examine the patient, review data and lab results, discuss treatment plan with patient, nursing staff around 55 minutes
Anticipated Discharge: > 48 hours
Subjective/Interval History
-
Date of Service: June 07, 2024
No abdominal pain
No chest pain
Less fever
Objective Data
-
Vital Signs:
Vital Signs
Temp Pulse Resp BP Pulse Ox
100.0 F 95 16 138/89 96
06/07/24 03:40 06/06/24 23:00 06/06/24 23:00 06/06/24 23:00 06/06/24 23:00
I&O
06/05/24 06/06/24 06/07/24
06:59 06:59 06:59
Intake Total 0 / 2640 1919
Output Total 550 / 550
Balance 2089
[2024-06-07 07:00] VITALS: BP 139/80
[2024-06-07 07:46] LABS: % Basophils 0.3 % (0-2); % Eosinophils 2.9 % (0-6); % Immature Granulocytes 0.3 % (0-0.5); % Lymphocytes 22.4 % (20.5-51.1); % Monocytes 10.1 % (1.7-9.3); Absolute Eosinophils 0.3 10^3/uL (0-0.7); Absolute Lymphocytes 2.1 10^3/uL (1.2-3.4); Absolute Monocytes 0.9 10^3/uL (0.1-0.6); Absolute Neutrophils 5.9 10^3/uL (1.4-6.5); Hematocrit 34.6 % (39.0-52.0); Hemoglobin 12.2 g/dL (13.0-18.0); Mean Corp Hgb Conc. 35.3 g/dL (33.0-37.0); Mean Corpuscular Hgb 30.5 pg (27.0-31.0); Mean Corpuscular Volume 86.5 fL (80.0-94.0); Mean Platelet Volume 11.4 fL (7.4-10.4); Nucleated Red Blood Cells % 0 % (-); Platelet Count 186 10^3/uL (130-400); Red Cell Dist. Width 13.3 % (11.5-14.5); White Blood Cell Count 9.3 10^3/uL (4.8-10.8)
[2024-06-07] MEDS: ASPIR LOW (ENTERIC COATED) 81 MG PO (08:08)
[2024-06-07] MEDS: LIPITOR 80 MG PO (08:09)
[2024-06-07] MEDS: ZETIA 10 MG PO (08:09)
--- NOTE | 2024-06-07 08:37 | W.PN.CRS1 ---
Today's Communication / Plan
-
continue clears
add ensure TID
monitor fever, await labs
Assessment/Plan
-
53-year-old male with PMH of GERD, HLD, RAINA (on BiPAP at night), elevated calcium score, and history of perforated diverticulitis who underwent elective robotic sigmoidectomy on 06/02/2024. He did well postoperatively and was discharged on 06/04. He
presents today after fever and chills last night of 101.5 and fever this morning of 100.4, otherwise asymptomatic. Passing flatus and stool without abdominal pain, nausea or vomiting, urinary symptoms or lower extremity pain/edema. noted some
increase in respiratory effort, but he denies chest pain or SOB. In the ED, a CT chest was done which ruled out a PE, but was noted to have pneumoperitoneum, likely postoperative in nature, and atelectasis. WBC was 11.9 without a left shift. Hb
13.3, Cr 1.1, T. bili 1.3, AST 64, ALT 104, troponin negative, EKG NSR.
Vitals normal, tmax 100.6 last night
WBC pending
� CT A/P yesterday with no acute findings.
�Urinalysis negative. Blood cultures with no growth in 24 hours.
�Add incentive spirometry every 1 hours while awake
-On Merrem. Appreciate ID.
� Will keep on clears another day. Add Ensure TID. Will advance diet when fever free.
� Encourage IS to improve atelectasis and OOB
� Okay for pain control with Tylenol, Toradol and oxycodone
� Appreciate hospitalist
Subjective Data
Subjective Data
Date of Service: June 07, 2024
Patient states he is feeling better today. He had a good night of slep. He denies any abdominal pain. He has bowel function. He denies nausea or vomiting.
Objective Data
-
Vital Signs
Temp Pulse Resp BP Pulse Ox
99.5 F 83 16 139/80 96
06/07/24 07:00 06/07/24 07:00 06/07/24 07:00 06/07/24 07:00 06/07/24 07:00
Intake & Output
06/06/24 06/07/24 06/08/24
06:59 06:59 06:59
Intake Total 2640 / 2640 1919
Output Total 550 / 550
Balance 2089
Intake:
Oral fluids 1440 / 1440 720 / 720
IV fluids (Total) 1200 / 1200 1200 / 1200
Output:
Urine, Voided 550 / 550
Other:
Number of approximated MODERATE 2 2
amounts of urine
Number of unmeasured liquid
stools
Rectum 3
Lab Results
06/07/24 07:40
Physical Exam
-
General: No Acute Distress and AOx3
Abdomen: Soft, Non Distended and Non Tender
Skin: Warm and Dry
[2024-06-07 09:39] LABS: Blood Urea Nitrogen 15 mg/dl (9-20); Calcium 8.8 mg/dl (8.4-10.2); Carbon Dioxide 23 mmol/L (22-30); Chloride 104 mmol/L (98-107); Estimated Creatinine Clearance 92 ml/min; Glucose 89 mg/dl (70-99); Potassium 3.9 mmol/L (3.5-5.1); Sodium 138 mmol/L (135-145); eGFR > 60.00
--- NOTE | 2024-06-07 13:37 | W.PN.ID1 ---
Date of Service
Date of Service: June 07, 2024
Today's Communication
Transition meropenem to empiric Augmentin 875mg po bid through 06/12.
Assessment / Plan
# Fever - trending down
# Leukocytosis - resolved
# Recent Perforated diverticulitis s/p robotic sigmoidectomy, lysis of adhesion 06/02/24.
- Pt without focal signs and symptoms of infection
- COVID, Flu negative
- Bcx's neg
- Chest CT no PNA
- CT a/p moderate free air from recent surgery. Per colorectal, no anastomotic leak.
- Transition meropenem to empiric Augmentin 875mg po bid through 06/12.
- Follow temps.
# Conditions RESIDENTIAL MORTGAGE MANAGER
Dyslipidemia
Obstructive sleep apnea on BiPAP
GERD
Cervical radiculopathy
C7-T1 [place] PAULINA June 2021
Sigmoid diverticulitis status post robotic sigmoidectomy June 02, 2024
Vasectomy
Chief Complaint
-: Fever
Subjective / Review of Systems
Had sweats with fever last night.
Feels good today. No symptoms.
Vital Signs / Physical Exam
Vital Signs
Vital Signs
Temp Pulse Resp BP Pulse Ox
98.3 F 83 16 139/80 96
06/07/24 11:43 06/07/24 07:00 06/07/24 07:00 06/07/24 07:00 06/07/24 07:00
Selected Entries
06/06/24
23:00
Temp 100.6 F H
Physical Exam
Constitutional: No Acute Distress and Comfortable
Eyes: No Conjunctival Hemorrhage and Sclera Anicteric
Cardiovascular: Regular Rate and S1/S2
Pulmonary: Clear
Gastrointestinal: Soft, Non Tender, Non Distended and Normal Bowel Sounds
Genito-Urinary: Negative CVA Tenderness
Extremities: Negative Edema
Neurological: AO x 3
Objective Data
Lab Data
Lab Results
06/07/24 07:40
06/07/24 07:40
ESR Cancelled 06/06/24 07:36
Estimated Creat Clear 92 ml/min 06/07/24 07:40
Total Bilirubin 0.9 mg/dl (0.2-1.3) 06/06/24 04:26
AST 55 U/L (17-59) 06/06/24 04:26
ALT 94 U/L (0-50) H 06/06/24 04:26
Alkaline Phosphatase 68 U/L (38-126) 06/06/24 04:26
C-Reactive Protein 139.60 mg/L (0.0-10.00) H 06/07/24 04:10
Most recent labs reviewed.
Micro Results:
06/06/24 08:16 Blood Culture - Preliminary
Blood/Venous No Growth in 24 hours- Final report to follow
06/05/24 17:57 Blood Culture - Preliminary
Blood/Venous No Growth in 24 hours- Final report to follow
06/05/24 15:10 Influenza Types A & B ([facility]) - Final
Nasal Swab Negative for Influenza A & B, NAAT
Negative results must be combined with clinical observations
and patient history.
Nucleic Acid Amplification test (NAAT)performed on the
[employer] platform.
06/05/[address]: MODERATE PNEUMOPERITONEUM secondary to recent robotic sigmoidectomy. MODERATE SOFT TISSUE EMPHYSEMA in the UPPER ABDOMINAL WALL. Mild mosaic attenuation in the lower lobes of both lungs most suggestive of obstructive small airways
disease with multifocal subsegmental atelectasis and air trapping.
06/06/24 CT a/p: Moderate free air in the abdomen and pelvis, mild extraluminal air adjacent to the anastomotic site of the sigmoid colon and mild presacral fluid/edema. Collectively these findings raise concern for possible anastomotic
leak/perforation. However, expected postoperative changes cannot be excluded.
--- NOTE | 2024-06-07 14:22 | CM ---
Chart reviewed
Clears today
Transitioning antibiotics to PO
Following labs
Plan - anticipate home no needs when medically ready
[2024-06-07 14:54] VITALS: BP 142/89
[2024-06-07] MEDS: LOVENOX 40 MG SC (17:35)
[2024-06-07] MEDS: AUGMENTIN 875 MG/125 MG 1 TABLET PO (21:42)
[2024-06-07 23:00] VITALS: BP 152/94
[2024-06-08 06:24] LABS: % Basophils 0.5 % (0-2); % Eosinophils 4.7 % (0-6); % Immature Granulocytes 0.6 % (0-0.5); % Lymphocytes 20.9 % (20.5-51.1); % Monocytes 11.2 % (1.7-9.3); % Neutrophils 62.1 % (42.2-75.2); Absolute Basophils 0.1 10^3/uL (0-0.2); Absolute Eosinophils 0.5 10^3/uL (0-0.7); Absolute Immature Granulocytes 0.1 10^3/uL (0-0.05); Absolute Monocytes 1.1 10^3/uL (0.1-0.6); Hematocrit 33.8 % (39.0-52.0); Hemoglobin 11.5 g/dL (13.0-18.0); Mean Corpuscular Hgb 29.3 pg (27.0-31.0); Mean Corpuscular Volume 86.2 fL (80.0-94.0); Mean Platelet Volume 10.5 fL (7.4-10.4); Nucleated Red Blood Cells % 0 % (-); Platelet Count 201 10^3/uL (130-400); Red Blood Cell Count 3.92 10^6/uL (4.70-6.10); Red Cell Dist. Width 13.3 % (11.5-14.5); White Blood Cell Count 9.6 10^3/uL (4.8-10.8)
[2024-06-08 06:53] LABS: ALT (SGPT) 77 U/L (0-50); AST (SGOT) 39 U/L (17-59); Albumin 3.4 g/dl (3.5-5.0); Alkaline Phosphatase 70 U/L (38-126); Blood Urea Nitrogen 13 mg/dl (9-20); Calcium 8.4 mg/dl (8.4-10.2); Carbon Dioxide 26 mmol/L (22-30); Chloride 103 mmol/L (98-107); Estimated Creatinine Clearance 102 ml/min; Glucose 99 mg/dl (70-99); Potassium 3.8 mmol/L (3.5-5.1); Sodium 138 mmol/L (135-145); Total Bilirubin 0.9 mg/dl (0.2-1.3); eGFR > 60.00
[2024-06-08 07:00] VITALS: BP 121/77
[2024-06-08] MEDS: ASPIR LOW (ENTERIC COATED) 81 MG PO (08:50)
[2024-06-08] MEDS: AUGMENTIN 875 MG/125 MG 1 TABLET PO (08:50)
[2024-06-08] MEDS: LIPITOR 80 MG PO (08:50)
[2024-06-08] MEDS: ZETIA 10 MG PO (08:50)
--- NOTE | 2024-06-08 09:05 | W.PN.ID1 ---
Date of Service
Date of Service: June 08, 2024
Today's Communication
Continue empiric Augmentin 875mg po bid x 5 more days through 06/12.
Assessment / Plan
# Fever - resolved
# Leukocytosis - resolved
# Recent Perforated diverticulitis s/p robotic sigmoidectomy, lysis of adhesion 06/02/24.
- COVID, Flu negative
- Bcx's neg
- Chest CT no PNA
- CT a/p moderate free air and at anastomotic site. Per colorectal, unlikely anastomotic leak.
- Continue empiric Augmentin 875mg po bid x 5 more days through 06/12.
# Conditions MEDICAL SALES CONSULTANT
Dyslipidemia
Obstructive sleep apnea on BiPAP
GERD
Cervical radiculopathy
C7-T1 [place] June 2021
Sigmoid diverticulitis status post robotic sigmoidectomy June 02, 2024
Vasectomy
Chief Complaint
-: Fever
Subjective / Review of Systems
Feels 'great' today.
Vital Signs / Physical Exam
Vital Signs
Vital Signs
Temp Pulse Resp BP Pulse Ox
98.1 F 71 18 121/77 97
06/08/24 07:00 06/08/24 07:00 06/08/24 07:00 06/08/24 07:00 06/08/24 07:00
Physical Exam
Constitutional: No Acute Distress and Comfortable
Cardiovascular: Regular Rate and S1/S2
Pulmonary: Clear
Gastrointestinal: Soft, Non Tender, Non Distended and Normal Bowel Sounds
Extremities: Negative Edema
Neurological: AO x 3
Objective Data
Lab Data
Lab Results
06/08/24 04:18
06/08/24 04:18
ESR Cancelled 06/06/24 07:36
Estimated Creat Clear 102 ml/min 06/08/24 04:18
Total Bilirubin 0.9 mg/dl (0.2-1.3) 06/08/24 04:18
AST 39 U/L (17-59) 06/08/24 04:18
ALT 77 U/L (0-50) H 06/08/24 04:18
Alkaline Phosphatase 70 U/L (38-126) 06/08/24 04:18
C-Reactive Protein 76.50 mg/L (0.0-10.00) H 06/08/24 04:18
Most recent labs reviewed.
Micro Results:
06/06/24 08:16 Blood Culture - Preliminary
Blood/Venous No Growth in 48 hours- Final report to follow
06/05/24 17:57 Blood Culture - Preliminary
Blood/Venous No Growth in 48 hours- Final report to follow
06/05/24 15:10 Influenza Types A & B ([facility]) - Final
Nasal Swab Negative for Influenza A & B, NAAT
Negative results must be combined with clinical observations
and patient history.
Nucleic Acid Amplification test (NAAT)performed on the
[employer] platform.
06/05/[address]: MODERATE PNEUMOPERITONEUM secondary to recent robotic sigmoidectomy. MODERATE SOFT TISSUE EMPHYSEMA in the UPPER ABDOMINAL WALL. Mild mosaic attenuation in the lower lobes of both lungs most suggestive of obstructive small airways
disease with multifocal subsegmental atelectasis and air trapping.
06/06/24 CT a/p: Moderate free air in the abdomen and pelvis, mild extraluminal air adjacent to the anastomotic site of the sigmoid colon and mild presacral fluid/edema. Collectively these findings raise concern for possible anastomotic
leak/perforation. However, expected postoperative changes cannot be excluded.
--- NOTE | 2024-06-08 09:49 | W.PN.CRS1 ---
Today's Communication / Plan
-
regular diet
if tolerates 2 meals, okay for d/c later today
Assessment/Plan
-
53-year-old male with PMH of GERD, HLD, RAINA (on BiPAP at night), elevated calcium score, and history of perforated diverticulitis who underwent elective robotic sigmoidectomy on 06/02/2024. He did well postoperatively and was discharged on 06/04. He
presents today after fever and chills last night of 101.5 and fever this morning of 100.4, otherwise asymptomatic. Passing flatus and stool without abdominal pain, nausea or vomiting, urinary symptoms or lower extremity pain/edema. noted some
increase in respiratory effort, but he denies chest pain or SOB. In the ED, a CT chest was done which ruled out a PE, but was noted to have pneumoperitoneum, likely postoperative in nature, and atelectasis. WBC was 11.9 without a left shift. Hb
13.3, Cr 1.1, T. bili 1.3, AST 64, ALT 104, troponin negative, EKG NSR.
Vitals normal, afebrile for over 24 hours
WBC 9.6
�Incentive spirometry every 1 hours while awake
-On po Augmentin. Appreciate ID.
�Advance to a regular diet.
� Encourage IS to improve atelectasis and OOB
� Okay for pain control with Tylenol, Toradol and oxycodone
� Appreciate hospitalist
- If tolerates a regular diet for 2 meals, okay for discharge. Discharge instructions discussed with patient. Follow up in the office as scheduled with Dr. Garsia.
Subjective Data
Subjective Data
Date of Service: June 08, 2024
Patient states he feels 'great'. He has no pain. He denies nausea or vomiting. He is having gas and bowel function.
Objective Data
-
Vital Signs
Temp Pulse Resp BP Pulse Ox
98.1 F 71 18 121/77 97
06/08/24 07:00 06/08/24 07:00 06/08/24 07:00 06/08/24 07:00 06/08/24 07:00
Intake & Output
06/07/24 06/08/24 06/09/24
06:59 06:59 06:59
Intake Total 1919 1470 / 1470
Balance 1919 1470 / 1470
Intake:
Oral fluids 720 / 720 1470 / 1470
IV fluids (Total) 1200 / 1200
Other:
Number of approximated MODERATE 2 2
amounts of urine
Number of unmeasured liquid
stools
Rectum 3
Lab Results
06/08/24 04:18
06/08/24 04:18
Physical Exam
-
General: No Acute Distress and AOx3
Abdomen: Soft, Non Distended and Non Tender
Skin: Warm and Dry
Incision: Clear, Dry, Intact
--- NOTE | 2024-06-08 09:57 | W.PN.HOSP.TC ---
Today's Communication/Plan
-
Advance diet
DC planning
Assessment / Plan
Assessment / Plan
54 years old male presented with fever.
#Fever
Possibly related to intra-abdominal source
CT A/P 05/27 no localized collection
Was treated empiric Meropenem and
IV Vancomycin was added , stopped by ID
negative blood culture . did on 06/05 & 06/06
Transthoracic Echo of heart, no vegetation.
Surgery site clean
WBC is normal.
No dysuria, urine looks clear. No skin rash. No leg pain. No hypoxia. No cough/toothache/sinus pain
Continue with oral Augmentin till 06/12 per ID
#Status post robotic sigmoidectomy, lysis of adhesions, mesenteric angiography with ICG, flexible sigmoidoscopy by Dr Garsia on 06/02/24
Seems to have uneventful course other than the fever. Good bowel function. No abdominal pain. Used Tylenol only at home. Surgery sites/holes look clean and no discharge seen. Subcutaneous emphysema not felt.
Advance diet per surgery. Tolerating clear liquid diet.
#Mild transaminitis, likely dehydration. Resolved. No need for more IVF
# History of mixed hyperlipidemia
#History of central sleep apnea, continue with home device.
#History of coronary artery calcification. Continue high-dose statin/Zetia and usual dose of aspirin
# DVT prophylaxis
Discussed with colorectal surgery-advance diet and if he tolerates his breakfast and lunch he can be discharged home.
Anticipated Discharge: Today
Subjective/Interval History
-
Date of Service: June 08, 2024
Tolerating clear liquid diet so far.
No fever chills.
Objective Data
-
Labs:
Laboratory Results
06/08/24
04:18
WBC 9.6
Hgb 11.5 L
Hct 33.8 L
Plt Count 201
Sodium 138
Potassium 3.8
Chloride 103
Carbon Dioxide 26
BUN 13
Creatinine 0.9
Glucose 99
Calcium 8.4
Total Bilirubin 0.9
AST 39
ALT 77 H
Alkaline Phosphatase 70
Vital Signs:
Vital Signs
Temp Pulse Resp BP Pulse Ox
98.1 F 71 18 121/77 97
06/08/24 07:00 06/08/24 07:00 06/08/24 07:00 06/08/24 07:00 06/08/24 07:00
I&O
06/07/24 06/08/24 06/09/24
06:59 06:59 06:59
Intake Total 1919 1470 / 1470
Balance 1919 147 / 1470
Review of Systems
-
Constitutional: Denies Fever
Respiratory: Denies Trouble Breathing
Cardiac: Denies Chest Pain
Neuro: Denies Dizzy
Physical Exam
-
General: No Apparent Distress
HEENT: Moist Mucous Membranes
Respiratory: Non Labored Respirations; Negative Accessory Resp Muscle Use
Cardiac: Regular Rhythm and S1/S2
GI: Soft, Nontender, Nondistended and Normal Bowel Sounds
Neuro: AO x 3
Data Reviewed
-
Labs: Labs Reviewed by me
[2024-06-08 11:00] VITALS: BP 143/92
--- NOTE | 2024-06-08 11:06 | CM ---
Chart reviewed. Met with pt/ at bedside
Poss d/c today if tolerating diet
Will have ride home at discharge
Plan - anticipate home no needs
[2024-06-08 14:08] VITALS: BP 151/96
--- NOTE | 2024-06-08 15:54 | PTCARENOTE ---
Patient tolerated breakfast and lunch. Patient states that he feels good and is ready to go. Patient discharged at 1530.
--- NOTE | 2024-06-09 15:18 | W.DCSUMMARY ---
Discharge Summary
Discharge Data
Date of Admission: 06/05/24
Date of Discharge: 06/08/24
-
Pending Results: No
Hospital Course
Primary diagnosis:
Post sigmoidectomy fever
Status post robotic sigmoidectomy, lysis of adhesions, mesenteric angiography with ICG, flexible sigmoidoscopy by Dr Garsia on 06/02/24
Secondary diagnosis:
Sleep apnea
History of coronary artery calcification
Hospital course:
Patient with above surgery presented with fever at home. He denied abdominal pain. He had normal bowel function with normal solid formed stool. He had a bowel surgery for perforated diverticulitis. He had infectious evaluation-did not have any
focal signs and symptoms of infection. COVID and flu was negative. Blood cultures were negative. Chest CT showed no evidence of pneumonia. He had a CT of the abdomen pelvis showed moderate free air from recent surgery and per colorectal no
anastomotic leak. Unclear source of infection but cannot rule out completely abdominal source. Was seen by colorectal surgery and infectious disease team.
He was put on empirical IV antibiotic initially. His fevers resolved and leukocytosis normalized. He was transitioned from meropenem to empirical Augmentin with continued improvement in house. Advised to continue with oral antibiotics till 06/12.
He was tolerating a diet prior to discharge
Consultants on board:
Colorectal surgery-Jonathan Campos
Infectious disease-Bre Martines
Discharge Plan
-
Patient Disposition: Home (Routine Discharge)
Discharge Diagnosis/Procedures: Post operative fever ;s/p recent sigmoidectomy
Condition: Fair
Diet: Regular
Activity: No strenuous activity
Driving Restrictions: No driving for 1 week
Bathing Restrictions: OK to Shower
Referrals:
Augustin Gunter, DO [Family Provider] - in less than 1 week
Jonathan Garsia MD [Active] - in two weeks
Prescriptions:
New
amoxicillin-pot clavulanate 875-125 mg Tablet
1 tab PO Q12 Qty: 9 0RF
Continued
atorvastatin 80 mg tablet
80 mg PO DAILY
aspirin 81 mg Tablet,Delayed Release (Dr/Ec)
81 mg PO DAILY
ezetimibe 10 mg Tablet
10 mg PO DAILY
acetaminophen [Tylenol Extra Strength] 500 mg Tablet
1,000 mg PO Q6HPRN PRN (Reason: mild pain)
ibuprofen 200 mg Tablet
600 mg PO Q6HPRN PRN (Reason: mild pain)
Discharge Orders:
Discharge Patient (As Directed); Ordered 06/08/24
Ordered By: Garrett Voss
Discharge Date and Time
Discharge Date/Time: 06/08/24 15:30
Print Language: YI
== END 2024-06-08 15:30 | disposition home or self-care (01) | DRG 864 ==
LOC: 2 SOUTH 17:46
PROVIDERS: Physician Assistant; Registered Nurse; ADMITTING PHYSICIAN Internal Medicine; ATTENDING PHYSICIAN Internal Medicine; CONSULT PHYSICIAN Surgery; EMERGENCY PHYSICIAN Emergency Medicine; FAMILY PHYSICIAN Family Medicine; OTHER PHYSICIAN Internal Medicine Infectious Disease
PROC: 5A09357 Assistance with Respiratory Ventilation, Less than 24 Consecutive Hours, Continuous Positive Airway Pressure (ICD-10-PCS; 2024-06-06)
DX: R50.82 Postprocedural fever (principal); J98.11 Atelectasis; E78.00 Pure hypercholesterolemia, unspecified; E86.0 Dehydration; R74.01 Elevation of levels of liver transaminase levels; E78.2 Mixed hyperlipidemia; K21.9 Gastro-esophageal reflux disease without esophagitis; D72.829 Elevated white blood cell count, unspecified; G47.31 Primary central sleep apnea; I25.10 Atherosclerotic heart disease of native coronary artery without angina pectoris; E78.49 Other hyperlipidemia; M54.12 Radiculopathy, cervical region; T81.82XA Emphysema (subcutaneous) resulting from a procedure, initial encounter; Y83.8 Other surgical procedures as the cause of abnormal reaction of the patient, or of later complication, without mention of misadventure at the time of the procedure; Y92.9 Unspecified place or not applicable; Z79.82 Long term (current) use of aspirin; Z11.52 Encounter for screening for COVID-19; Z80.0 Family history of malignant neoplasm of digestive organs; Z87.19 Personal history of other diseases of the digestive system
CPT/HCPCS: 71275; 74177; 80048; 80053; 81003; 84484; 85025; 85027; 85652; 86140; 87040; 87502; 87811; 93005; 93306; 99285; Q9967